=== PATIENT | male | born 1955 | race Caucasian/White ===

== ENCOUNTER → 2017-07-28 | Outpatient (REF) | payer MEDICARE ==
[2017-07-28 16:13] LABS: BASO # 0.1 10^3/uL (0.0-0.2); BASO % 0.8 % (0.0-1.0); EOS # 0.3 10^3/uL (0.0-0.50); EOS % 2.4 % (0.0-3.0); HEMATOCRIT 41.6 % (42.0-52.0); HEMOGLOBIN 13.8 g/dl (13.5-17.5); IMMATURE GRANULOCYTE % 0.4 % (0-3.0); LYMPH # 3.1 10^3/uL (1.5-4.5); LYMPH % 26.5 % (24.0-44.0); MEAN CORPUSCULAR HEMOGLOBIN 31.2 pg (27.0-33.0); MEAN CORPUSCULAR HGB CONC 33.2 g/dl (32.0-36.5); MEAN CORPUSCULAR VOLUME 94.1 fl (80.0-96.0); MONO # 1.7 10^3/uL (0.0-0.8); MONO % 14.3 % (0.0-5.0); NEUTROPHILS # 6.5 10^3/uL (1.8-7.7); NEUTROPHILS % 55.6 % (36.0-66.0); PLATELET COUNT, AUTOMATED 240 10^3/uL (150-450); RED BLOOD COUNT 4.42 10^6/uL (4.30-6.10); RED CELL DISTRIBUTION WIDTH 13.1 % (11.5-14.5); WHITE BLOOD COUNT 11.7 10^3/uL (4.0-10.0)
[2017-07-28 16:21] LABS: PTH INTACT 29.7 PG/ML (18.5-88.0); TOTAL 25(OH) VITAMIN D 35.5 NG/ML (30.0-100.0)
[2017-07-28 16:38] LABS: ALBUMIN 4.3 GM/DL (3.2-5.2); ALBUMIN/GLOBULIN RATIO 1.16 (1.00-1.93); ALKALINE PHOSPHATASE 81 U/L (45-117); ALT/SGPT 114 U/L (12-78); ANION GAP 8 MEQ/L (8-16); AST/SGOT 123 U/L (7-37); BILIRUBIN,TOTAL 0.8 MG/DL (0.2-1.0); BLOOD UREA NITROGEN 11 MG/DL (7-18); CARBON DIOXIDE LEVEL 29 MEQ/L (21-32); CHLORIDE LEVEL 100 MEQ/L (98-107); CHOLESTEROL LEVEL 162 MG/DL (<200); CHOLESTEROL RISK RATIO 4.378 (<5); CREATININE FOR GFR 1.32 MG/DL (0.70-1.30); GLOMERULAR FILTRATION RATE 58.7 (>49); GLUCOSE, FASTING 104 MG/DL (70-100); HDL CHOLESTEROL 37 MG/DL (>40); LDL CHOLESTEROL 99.4 MG/DL (<100); NON-HDL-C 125 MG/DL; POTASSIUM SERUM 4.2 MEQ/L (3.5-5.1); SODIUM LEVEL 137 MEQ/L (136-145); TRIGLYCERIDES LEVEL 128 MG/DL (<150)
[2017-08-03 14:13] LABS: AMPHETAMINE SCREEN, URINE See Final Results ng/mL (Cutoff=1000); AMPHETAMINE, URINE GC/MS 4700 ng/mL (Cutoff=500); AMPHETAMINES , URINE Positive (.); AMPHETAMINES , URINE Positive (Cutoff=1000); BARBITURATES SCREEN, URINE Negative ng/mL (Cutoff=200); BENZODIAZEPINES, URINE SCREEN Negative ng/mL (Cutoff=200); CANNABINOID SCREEN, URINE See Final Results ng/mL (Cutoff=20); CANNABINOID, URINE Positive (Cutoff=20); CARBOXY THC (GC/MS) >300 ng/mL (Cutoff=10); COCAINE SCREEN, URINE Negative ng/mL (Cutoff=300); CODEINE CONFIRM >3000 ng/mL (Cutoff=100); CODEINE, URINE Positive (.); CREATININE, URINE 163.6 mg/dL (20.0-300.0); FENTANYL URINE SCREEN Negative pg/mL (Cutoff=2000); HYDROCODONE CONFIRM, URINE 313 ng/mL (Cutoff=100); HYDROCODONE, URINE Positive (.); HYDROMORPHONE CONFIRM, URINE 131 ng/mL (Cutoff=100); HYDROMORPHONE, URINE Positive (.); METHADONE, URINE SCREEN Negative ng/mL (Cutoff=300); METHAMPHETAMINE, URINE Negative (Cutoff=500); MORPHINE CONFIRM, URINE >3000 ng/mL (Cutoff=100); MORPHINE, URINE Positive (.); OPIATE SCREEN, URINE See Final Results ng/mL (Cutoff=300); OPIATES, URINE Positive ng/mL (Cutoff=300); OXYCODONE, SCREEN, URINE Negative ng/mL (Cutoff=100); PCP SCREEN, URINE Negative ng/mL (Cutoff=25); SPECIFIC GRAVITY, URINE 1.011 (.); TRAMADOL, URINE Positive (Cutoff=200); TRAMADOL, URINE (GC/MS) 12450 ng/mL (Cutoff=100); pH, URINE 5.7 (4.5-8.9)
== END ==
LOC: M SFHCPLAZ 12:33
DX: I10 Essential (primary) hypertension (principal); E78.5 Hyperlipidemia, unspecified; E55.9 Vitamin D deficiency, unspecified; M75.100 Unspecified rotator cuff tear or rupture of unspecified shoulder, not specified as traumatic; G89.28 Other chronic postprocedural pain; Z79.82 Long term (current) use of aspirin; Z79.899 Other long term (current) drug therapy
CPT/HCPCS: 83735

== ENCOUNTER → 2017-08-15 | Outpatient (CLI) | payer MEDICARE ==
[2017-08-15 09:30] LABS: ANION GAP 6 MEQ/L (8-16); BLOOD UREA NITROGEN 13 MG/DL (7-18); CALCIUM LEVEL 8.9 MG/DL (8.8-10.2); CARBON DIOXIDE LEVEL 28 MEQ/L (21-32); CHLORIDE LEVEL 106 MEQ/L (98-107); CREATININE FOR GFR 1.23 MG/DL (0.70-1.30); GLOMERULAR FILTRATION RATE > 60.0 (>49); GLUCOSE, FASTING 134 MG/DL (70-100); PHOSPHORUS LEVEL 2.4 MG/DL (2.5-4.9); POTASSIUM SERUM 4.8 MEQ/L (3.5-5.1); SODIUM LEVEL 140 MEQ/L (136-145)
[2017-08-15 09:40] LABS: MALB URINE SIEMENS 13.6 MG/L; MAU/CREAT RATIO 5.9 MCG/MG (0.0-30.0)
[2017-08-16 09:21] LABS: HEPATITIS B SURFACE ANTIGEN NEGATIVE (NEGATIVE)
[2017-08-16 09:33] LABS: HEPATITIS B CORE ANTIBODY IGM NEGATIVE (NEGATIVE)
[2017-08-16 09:35] LABS: HEPATITIS A ANTIBODY IGM NEGATIVE (NEGATIVE)
[2017-08-16 10:13] LABS: HEPATITIS C VIRUS ABY INDEX > 11.0 INDEX (<0.8)
== END ==
LOC: M LAB 08:42
DX: R74.8 Abnormal levels of other serum enzymes (principal); N18.2 Chronic kidney disease, stage 2 (mild)
CPT/HCPCS: 80069

== ENCOUNTER → 2017-08-28 | Outpatient (CLI) | payer MEDICARE ==
[2017-08-28 10:50] LABS: HEPATITIS B SURFACE ANTIBODY NEGATIVE (POSITIVE)
[2017-08-31 08:11] LABS: ALPHA 2-MACROGLOBULIN 701 mg/dL (110-276); ALT 118 IU/L (0-55); APOLIPOPROTEIN A-1 127 mg/dL (101-178); FIBROSIS SCORE 0.94 (0.00-0.21); GGT 168 IU/L (0-65); HAPTOGLOBIN 96 mg/dL (34-200); HEPATITIS A IgG TOTAL Positive (Negative); NECROINFLAM SCORE 0.82 (0.00-0.17); NECROINFLAMM GRADE A3-Severe activity (.); TOTAL BILIRUBIN 0.5 mg/dL (0.0-1.2)
[2017-09-01 00:09] LABS: HEPATITIS C VIRUS GENOTYPE 1a (.)
== END ==
LOC: M LAB 09:05
DX: B19.20 Unspecified viral hepatitis C without hepatic coma (principal)
CPT/HCPCS: 84460

== ENCOUNTER → 2017-09-22 | Outpatient (CLI) | payer MEDICARE | LOC: M RAD 08:16 | DX: B19.20 Unspecified viral hepatitis C without hepatic coma (principal) | CPT/HCPCS: 76705 ==

== ENCOUNTER 2017-10-04 07:41 | Emergency (ER) | payer MEDICARE ==
[2017-10-04] MEDS: NORCO, ANEXSIA 5/325MG TABLET (HYDROcodone/ACETAMINOPHEN) PO (08:53)
== END 2017-10-04 08:54 | disposition home or self-care (01) ==
LOC: M ED 07:41
DX: S46.011A Strain of muscle(s) and tendon(s) of the rotator cuff of right shoulder, initial encounter (principal); X58.XXXA Exposure to other specified factors, initial encounter; Y92.9 Unspecified place or not applicable; Y93.9 Activity, unspecified; Y99.9 Unspecified external cause status; I10 Essential (primary) hypertension; J45.909 Unspecified asthma, uncomplicated; K21.9 Gastro-esophageal reflux disease without esophagitis; M19.90 Unspecified osteoarthritis, unspecified site; Z79.82 Long term (current) use of aspirin; Z79.899 Other long term (current) drug therapy
CPT/HCPCS: 99283

== ENCOUNTER → 2017-11-01 | Outpatient (REF) | payer MEDICARE ==
[2017-11-01 13:09] LABS: BASO # 0.1 10^3/uL (0.0-0.2); BASO % 0.9 % (0.0-1.0); EOS # 0.2 10^3/uL (0.0-0.50); EOS % 2.2 % (0.0-3.0); HEMATOCRIT 44.1 % (42.0-52.0); IMMATURE GRANULOCYTE % 0.7 % (0-3.0); LYMPH # 1.9 10^3/uL (1.5-4.5); LYMPH % 21.6 % (24.0-44.0); MEAN CORPUSCULAR HEMOGLOBIN 32.7 pg (27.0-33.0); MEAN CORPUSCULAR VOLUME 96.1 fl (80.0-96.0); MONO # 0.8 10^3/uL (0.0-0.8); MONO % 8.5 % (0.0-5.0); NEUTROPHILS # 5.9 10^3/uL (1.8-7.7); NEUTROPHILS % 66.1 % (36.0-66.0); PLATELET COUNT, AUTOMATED 178 10^3/uL (150-450); RED BLOOD COUNT 4.59 10^6/uL (4.30-6.10); RED CELL DISTRIBUTION WIDTH 12.4 % (11.5-14.5); WHITE BLOOD COUNT 8.9 10^3/uL (4.0-10.0)
[2017-11-01 13:15] LABS: INR 1.11; PROTHROMBIN TIME 14.4 SECONDS (12.1-14.4)
[2017-11-01 13:54] LABS: HIV 1&2 SCREEN CENTAUR NEGATIVE (NEGATIVE)
[2017-11-03 10:40] LABS: ALPHA FETOPROTEIN TUMOR QUANT 5.2 NG/ML (<8.1)
[2017-11-06 10:32] LABS: HEPATITIS C QUANTITATION 1937790 IU/mL (.)
== END ==
LOC: M LABDRAW1 09:27
DX: B18.2 Chronic viral hepatitis C (principal); K74.60 Unspecified cirrhosis of liver
CPT/HCPCS: 87522

== ENCOUNTER 2017-11-03 07:46 | Emergency (ER) | payer MEDICARE ==
[2017-11-03] MEDS: PERCOCET 5MG/325MG TAB PO (08:27)
== END 2017-11-03 09:25 | disposition home or self-care (01) ==
LOC: M ED 07:46
DX: G89.29 Other chronic pain (principal); M25.511 Pain in right shoulder; I10 Essential (primary) hypertension; J44.9 Chronic obstructive pulmonary disease, unspecified; Z86.19 Personal history of other infectious and parasitic diseases; K74.60 Unspecified cirrhosis of liver; M19.90 Unspecified osteoarthritis, unspecified site; F41.9 Anxiety disorder, unspecified; Z98.1 Arthrodesis status; Z79.82 Long term (current) use of aspirin; Z79.899 Other long term (current) drug therapy
CPT/HCPCS: 71046

== ENCOUNTER 2017-11-16 08:09 | Emergency (ER) | payer MEDICARE | END 2017-11-16 09:35 | disposition home or self-care (01) | LOC: M ED 08:09 | DX: M25.511 Pain in right shoulder (principal); G89.29 Other chronic pain; M19.011 Primary osteoarthritis, right shoulder; I10 Essential (primary) hypertension; J44.9 Chronic obstructive pulmonary disease, unspecified; B19.10 Unspecified viral hepatitis B without hepatic coma; B19.20 Unspecified viral hepatitis C without hepatic coma; K74.60 Unspecified cirrhosis of liver; F41.9 Anxiety disorder, unspecified; Z79.899 Other long term (current) drug therapy; Z79.82 Long term (current) use of aspirin; Z79.51 Long term (current) use of inhaled steroids | CPT/HCPCS: 99283 ==

== ENCOUNTER → 2017-12-21 | Outpatient (REF) | payer MEDICARE ==
[2017-12-21 14:32] LABS: BASO # 0.1 10^3/uL (0.0-0.2); BASO % 0.4 % (0.0-1.0); EOS # 0.1 10^3/uL (0.0-0.50); EOS % 0.6 % (0.0-3.0); HEMATOCRIT 48.3 % (42.0-52.0); IMMATURE GRANULOCYTE % 0.8 % (0-3.0); LYMPH # 2.5 10^3/uL (1.5-4.5); LYMPH % 11.9 % (24.0-44.0); MEAN CORPUSCULAR HEMOGLOBIN 32.6 pg (27.0-33.0); MEAN CORPUSCULAR HGB CONC 33.1 g/dl (32.0-36.5); MEAN CORPUSCULAR VOLUME 98.4 fl (80.0-96.0); MONO # 1.2 10^3/uL (0.0-0.8); NEUTROPHILS # 16.5 10^3/uL (1.8-7.7); NEUTROPHILS % 80.3 % (36.0-66.0); PLATELET COUNT, AUTOMATED 220 10^3/uL (150-450); RED BLOOD COUNT 4.91 10^6/uL (4.30-6.10); RED CELL DISTRIBUTION WIDTH 13.2 % (11.5-14.5); WHITE BLOOD COUNT 20.6 10^3/uL (4.0-10.0)
[2017-12-21 14:49] LABS: ALBUMIN 4.2 GM/DL (3.2-5.2); ALKALINE PHOSPHATASE 93 U/L (45-117); ALT/SGPT 23 U/L (12-78); AST/SGOT 22 U/L (7-37); BILIRUBIN,DIRECT 0.5 MG/DL (0.0-0.2); BILIRUBIN,TOTAL 1.2 MG/DL (0.2-1.0); TOTAL PROTEIN 8.4 GM/DL (6.4-8.2)
[2017-12-25 14:17] LABS: HEPATITIS C QUANTITATION HCV Not Detected IU/mL (.)
== END ==
LOC: M SFHCPLAZ 07:54
DX: B18.2 Chronic viral hepatitis C (principal)
CPT/HCPCS: 80076

== ENCOUNTER → 2018-01-02 | Outpatient (CLI) | payer MEDICARE | LOC: M PAIN 15:30 | DX: G89.29 Other chronic pain (principal); M54.5 Low back pain; M25.511 Pain in right shoulder; J45.909 Unspecified asthma, uncomplicated; I10 Essential (primary) hypertension; M50.20 Other cervical disc displacement, unspecified cervical region; K74.60 Unspecified cirrhosis of liver; Z87.891 Personal history of nicotine dependence; Z79.82 Long term (current) use of aspirin; Z79.899 Other long term (current) drug therapy | CPT/HCPCS: G0463 ==

== ENCOUNTER → 2018-01-30 | Outpatient (CLI) | payer MEDICARE | LOC: M PAIN 08:45 | DX: Z53.8 Procedure and treatment not carried out for other reasons (principal) ==

== ENCOUNTER 2018-02-17 07:33 | Emergency (ER) | payer MEDICARE ==
[2018-02-17] MEDS: PERCOCET 5MG/325MG TAB PO (08:18)
[2018-02-17] MEDS: OXYCODONE/APAP 5MG/325MG(BULK FOR ED) 1 TABLET PO (08:40)
== END 2018-02-17 08:45 | disposition home or self-care (01) ==
LOC: M ED 07:33
DX: M25.512 Pain in left shoulder (principal); G89.29 Other chronic pain; I10 Essential (primary) hypertension; J44.9 Chronic obstructive pulmonary disease, unspecified
CPT/HCPCS: 99283

== ENCOUNTER 2018-03-18 07:20 | Emergency (ER) | payer MEDICARE, OTHER ==
[~2018-03-18] VITALS: Ht 175.3 cm; Wt 75.0 kg
[~2018-03-18 07:20] MED LIST: ACET300T52 PO; ASPI1TAB21 PO; BABY81CH; BREO1INH PO; DIOV160T6 PO; GEMF600T PO; MAVY1TAB PO; MELOPOW; METO1TAB32 PO; METO1TAB87 PO; METO25TA2; METROPROLOL; MONT10TA2 PO; MULTIVIT PO; NEUR300C PO; NORCOTAB PO; PERC5TAB12 PO; PRED1TABL PO; PRIL20CA; PROAAER10 IN; PX O20TA PO; TIZA2TA PO; TRAZ-160 PO; TYLENOL #3; TYLETAB15 PO; TYLETAB3; VALS1TAB47 PO; VALS80CA; VENTAER; VOLT1GEL15 TOP; ZOCO20TA
[2018-03-18] MEDS ORDERED: PROAAER10 INH (07:27)
[2018-03-18] MEDS ORDERED: PERCOCET 5MG/325MG TAB PO ONE (08:30)
[2018-03-18 09:25] VITALS: BP 183/91
[2018-03-18] MEDS ORDERED: PERC5TAB12 PO (09:25)
--- NOTE | 2018-03-18 16:16 | REP ---
CT BRAIN WITHOUT IV CONTRAST: CT brain performed without IV contrast. There is very mild atrophy. There is no midline shift or mass effect. Mathis/white differentiation is well maintained. There is no acute intracranial hemorrhage or extra-axial fluid collection. No skull fracture is seen. There are mild vascular calcifications in the carotid siphons. IMPRESSION: No acute intracranial hemorrhage or skull fracture. Electronically Signed by David Mathis MD 03/18/2018 04:21 P
--- NOTE | 2018-03-18 16:22 | REP ---
CT CERVICAL SPINE: CT cervical spine performed in the axial plane with sagittal and coronal reconstruction images. There is no acute fracture or dislocation. There is evidence of prior anterior cervical discectomy and fusion at C5 through C7. There is spurring of C3 and C4 with mild disc space narrowing at C3-4 and C4-5. There is slight retrolisthesis of C4 on C5. There is an anterior osteophyte at the inferior aspect of C7. Two metallic screws at the C7 level extend beyond the posterior margin of the vertebral body into the spinal canal, approximately 5 mm. They appear to cause cortical compression at this level. There is no prevertebral soft tissue swelling. There is mild diffuse degenerative change at the posterior facet joints. Diffuse disc bulging is noted at C2-3, C3-4 and C4-5. IMPRESSION: No evidence of acute fracture or dislocation. There is evidence of prior anterior cervical discectomy and fusion C5 through C7. At the C7 level there are two metallic screws extending posteriorly through the inferior aspect of the C7 vertebral body. The tips of both screws extend into the spinal canal for a length of about 5 mm. There appears to be compression of the cord. I do not any prior studies for comparison but this does not appear to be an acute finding. Electronically Signed by David Mathis MD 03/18/2018 04:29 P
== END 2018-03-18 09:42 | disposition home or self-care (01) ==
LOC: M ED 07:20
DX: M54.2 Cervicalgia (principal); T84.226A Displacement of internal fixation device of vertebrae, initial encounter; X58.XXXA Exposure to other specified factors, initial encounter; Y92.89 Other specified places as the place of occurrence of the external cause; I10 Essential (primary) hypertension; J44.9 Chronic obstructive pulmonary disease, unspecified; J45.909 Unspecified asthma, uncomplicated; F41.9 Anxiety disorder, unspecified; M19.90 Unspecified osteoarthritis, unspecified site; K21.9 Gastro-esophageal reflux disease without esophagitis; K76.89 Other specified diseases of liver; B19.20 Unspecified viral hepatitis C without hepatic coma; B19.10 Unspecified viral hepatitis B without hepatic coma; Z79.899 Other long term (current) drug therapy; Z79.82 Long term (current) use of aspirin; Z87.891 Personal history of nicotine dependence

== ENCOUNTER 2018-05-19 10:02 | Emergency (ER) | payer MEDICARE ==
[~2018-05-19 10:02] MED LIST changes: +PROAAER10 INH
[2018-05-19] MEDS ORDERED: IRBE150T12 PO (10:25)
[2018-05-19] MEDS ORDERED: NS 1,000 ML IV ONE (11:15)
[2018-05-19] MEDS ORDERED: ceFAZolin SOD 1 GM in D5W MINI-BAG PLUS 50 ML IV ONE (11:30)
[2018-05-19] MEDS ORDERED: PERCOCET 5MG/325MG TAB PO ONE (11:45)
[2018-05-19 12:00] LABS: BASO # 0.1 10^3/uL (0.0-0.2); BASO % 0.8 % (0.0-1.0); EOS # 0.3 10^3/uL (0.0-0.50); EOS % 2.2 % (0.0-3.0); HEMATOCRIT 39.1 % (42.0-52.0); HEMOGLOBIN 13.2 g/dl (13.5-17.5); LYMPH # 2.4 10^3/uL (1.5-4.5); LYMPH % 17.2 % (24.0-44.0); MEAN CORPUSCULAR HEMOGLOBIN 30.9 pg (27.0-33.0); MEAN CORPUSCULAR HGB CONC 33.8 g/dl (32.0-36.5); MEAN CORPUSCULAR VOLUME 91.6 fl (80.0-96.0); MONO # 1.1 10^3/uL (0.0-0.8); NEUTROPHILS # 9.9 10^3/uL (1.8-7.7); NEUTROPHILS % 71.2 % (36.0-66.0); PLATELET COUNT, AUTOMATED 212 10^3/uL (150-450); RED BLOOD COUNT 4.27 10^6/uL (4.30-6.10); WHITE BLOOD COUNT 13.9 10^3/uL (4.0-10.0)
[2018-05-19 12:15] VITALS: BP 126/79
[2018-05-19 12:23] LABS: CALCIUM LEVEL 8.7 MG/DL (8.8-10.2); CREATININE FOR GFR 1.3 MG/DL (0.70-1.30); GLOMERULAR FILTRATION RATE 59.5 (>49); POTASSIUM SERUM 3.7 MEQ/L (3.5-5.1)
== END 2018-05-19 12:25 | disposition short-term general hospital (02) ==
LOC: EDBD 10:02 → M ED 10:02
DX: T81.31XA Disruption of external operation (surgical) wound, not elsewhere classified, initial encounter (principal); X58.XXXA Exposure to other specified factors, initial encounter; Y92.89 Other specified places as the place of occurrence of the external cause; I10 Essential (primary) hypertension; J44.9 Chronic obstructive pulmonary disease, unspecified; K21.9 Gastro-esophageal reflux disease without esophagitis; M19.90 Unspecified osteoarthritis, unspecified site; Z79.899 Other long term (current) drug therapy; Z79.82 Long term (current) use of aspirin; Z79.51 Long term (current) use of inhaled steroids
CPT/HCPCS: 80048; 85025; 87040; 96374; 99285; J0690

== ENCOUNTER → 2018-06-04 | Outpatient (REF) | payer MEDICARE ==
[~2018-06-04] MED LIST changes: +IRBE150T12 PO
[2018-06-04 11:26] LABS: BASO # 0.1 10^3/uL (0.0-0.2); BASO % 0.9 % (0.0-1.0); EOS # 0.5 10^3/uL (0.0-0.50); EOS % 3.7 % (0.0-3.0); HEMATOCRIT 38.4 % (42.0-52.0); HEMOGLOBIN 12.5 g/dl (13.5-17.5); LYMPH # 2.1 10^3/uL (1.5-4.5); LYMPH % 14.7 % (24.0-44.0); MEAN CORPUSCULAR HEMOGLOBIN 30.5 pg (27.0-33.0); MEAN CORPUSCULAR HGB CONC 32.6 g/dl (32.0-36.5); MEAN CORPUSCULAR VOLUME 93.7 fl (80.0-96.0); MONO # 1.2 10^3/uL (0.0-0.8); MONO % 8.3 % (0.0-5.0); NEUTROPHILS # 10.2 10^3/uL (1.8-7.7); NEUTROPHILS % 71.8 % (36.0-66.0); PLATELET COUNT, AUTOMATED 367 10^3/uL (150-450); WHITE BLOOD COUNT 14.2 10^3/uL (4.0-10.0)
[2018-06-04 11:36] LABS: ALBUMIN 3.9 GM/DL (3.2-5.2); BILIRUBIN,TOTAL 0.4 MG/DL (0.2-1.0); C REACTIVE PROTEIN QUANTITATIV 1.08 MG/DL (0.00-0.30); CALCIUM LEVEL 8.9 MG/DL (8.8-10.2); CREATININE FOR GFR 2.39 MG/DL (0.70-1.30); GLOMERULAR FILTRATION RATE 29.5 (>49); POTASSIUM SERUM 4.5 MEQ/L (3.5-5.1); TOTAL PROTEIN 7.6 GM/DL (6.4-8.2)
[2018-06-04 12:24] LABS: ERYTHROCYTE SEDIMENTATION RATE 49 mm/hr (0-20)
== END ==
LOC: M LAB REF 10:54
PROVIDERS: ATTEND Internal Medicine Infectious Disease
DX: T84.7XXD Infection and inflammatory reaction due to other internal orthopedic prosthetic devices, implants and grafts, subsequent encounter (principal)

== ENCOUNTER → 2018-06-11 | Outpatient (REF) | payer MEDICARE ==
[2018-06-11 14:40] LABS: BASO # 0.1 10^3/uL (0.0-0.2); BASO % 0.6 % (0.0-1.0); EOS # 0.2 10^3/uL (0.0-0.50); EOS % 1.5 % (0.0-3.0); HEMATOCRIT 39.3 % (42.0-52.0); HEMOGLOBIN 12.8 g/dl (13.5-17.5); LYMPH # 3.1 10^3/uL (1.5-4.5); LYMPH % 20.6 % (24.0-44.0); MEAN CORPUSCULAR HEMOGLOBIN 30.3 pg (27.0-33.0); MEAN CORPUSCULAR HGB CONC 32.6 g/dl (32.0-36.5); MEAN CORPUSCULAR VOLUME 93.1 fl (80.0-96.0); NEUTROPHILS # 10.3 10^3/uL (1.8-7.7); NEUTROPHILS % 69.8 % (36.0-66.0); PLATELET COUNT, AUTOMATED 457 10^3/uL (150-450); RED BLOOD COUNT 4.22 10^6/uL (4.30-6.10); WHITE BLOOD COUNT 14.8 10^3/uL (4.0-10.0)
[2018-06-11 14:53] LABS: ALBUMIN 3.7 GM/DL (3.2-5.2); BILIRUBIN,TOTAL 0.4 MG/DL (0.2-1.0); C REACTIVE PROTEIN QUANTITATIV 3.57 MG/DL (0.00-0.30); CALCIUM LEVEL 9.4 MG/DL (8.8-10.2); CREATININE FOR GFR 1.94 MG/DL (0.70-1.30); GLOMERULAR FILTRATION RATE 37.5 (>49); POTASSIUM SERUM 4.5 MEQ/L (3.5-5.1); TOTAL PROTEIN 7.9 GM/DL (6.4-8.2)
[2018-06-11 15:12] LABS: ERYTHROCYTE SEDIMENTATION RATE 60 mm/hr (0-20)
== END ==
LOC: M SHH 13:59
PROVIDERS: ATTEND Internal Medicine Infectious Disease
DX: T84.7XXD Infection and inflammatory reaction due to other internal orthopedic prosthetic devices, implants and grafts, subsequent encounter (principal); T81.49XA Infection following a procedure, other surgical site, initial encounter; A49.9 Bacterial infection, unspecified; Z79.2 Long term (current) use of antibiotics; X58.XXXA Exposure to other specified factors, initial encounter; Y92.89 Other specified places as the place of occurrence of the external cause

== ENCOUNTER → 2018-06-11 | Outpatient (REF) | payer MEDICARE ==
[2018-06-11 14:37] LABS: BASO # 0.1 10^3/uL (0.0-0.2); BASO % 0.8 % (0.0-1.0); EOS # 0.2 10^3/uL (0.0-0.50); EOS % 1.6 % (0.0-3.0); HEMOGLOBIN 12.7 g/dl (13.5-17.5); LYMPH # 3.1 10^3/uL (1.5-4.5); MEAN CORPUSCULAR HEMOGLOBIN 30.5 pg (27.0-33.0); MEAN CORPUSCULAR HGB CONC 33.4 g/dl (32.0-36.5); MEAN CORPUSCULAR VOLUME 91.3 fl (80.0-96.0); MONO % 7.1 % (0.0-5.0); NEUTROPHILS # 10.1 10^3/uL (1.8-7.7); PLATELET COUNT, AUTOMATED 457 10^3/uL (150-450); RED BLOOD COUNT 4.16 10^6/uL (4.30-6.10); WHITE BLOOD COUNT 14.6 10^3/uL (4.0-10.0)
[2018-06-11 14:58] LABS: ALBUMIN 3.7 GM/DL (3.2-5.2); BILIRUBIN,TOTAL 0.4 MG/DL (0.2-1.0); CALCIUM LEVEL 9.3 MG/DL (8.8-10.2); CHOLESTEROL RISK RATIO 4.953 (<5); CREATININE FOR GFR 1.91 MG/DL (0.70-1.30); GLOMERULAR FILTRATION RATE 38.2 (>49); MAGNESIUM LEVEL 1.8 MG/DL (1.8-2.4); POTASSIUM SERUM 4.5 MEQ/L (3.5-5.1); THYROID STIMULATING HORMONE 0.749 uIU/ML (0.358-3.740); TOTAL PROTEIN 7.8 GM/DL (6.4-8.2)
[2018-06-11 15:08] LABS: PTH INTACT 35.9 PG/ML (18.5-88.0); TOTAL 25(OH) VITAMIN D 23.6 NG/ML (30.0-100.0)
[2018-06-11 15:34] LABS: HEMOGLOBIN A1c 5.5 %
== END ==
LOC: M SHH 13:57
PROVIDERS: ATTEND Nurse Practitioner Family
DX: N18.3 Chronic kidney disease, stage 3 (moderate) (principal); E78.5 Hyperlipidemia, unspecified; I12.9 Hypertensive chronic kidney disease with stage 1 through stage 4 chronic kidney disease, or unspecified chronic kidney disease; E55.9 Vitamin D deficiency, unspecified; T84.7XXD Infection and inflammatory reaction due to other internal orthopedic prosthetic devices, implants and grafts, subsequent encounter; T81.49XA Infection following a procedure, other surgical site, initial encounter; A49.9 Bacterial infection, unspecified; Z79.1 Long term (current) use of non-steroidal anti-inflammatories (NSAID); X58.XXXA Exposure to other specified factors, initial encounter; Y92.89 Other specified places as the place of occurrence of the external cause

== ENCOUNTER → 2018-06-18 | Outpatient (REF) | payer MEDICARE ==
[2018-06-18 12:18] LABS: BASO # 0.1 10^3/uL (0.0-0.2); BASO % 1.1 % (0.0-1.0); EOS # 0.4 10^3/uL (0.0-0.50); EOS % 3.5 % (0.0-3.0); HEMATOCRIT 37.4 % (42.0-52.0); LYMPH # 2.1 10^3/uL (1.5-4.5); LYMPH % 20.7 % (24.0-44.0); MEAN CORPUSCULAR HEMOGLOBIN 30.5 pg (27.0-33.0); MEAN CORPUSCULAR HGB CONC 32.1 g/dl (32.0-36.5); MEAN CORPUSCULAR VOLUME 94.9 fl (80.0-96.0); MONO # 0.8 10^3/uL (0.0-0.8); MONO % 7.8 % (0.0-5.0); NEUTROPHILS # 6.8 10^3/uL (1.8-7.7); NEUTROPHILS % 66.2 % (36.0-66.0); PLATELET COUNT, AUTOMATED 364 10^3/uL (150-450); RED BLOOD COUNT 3.94 10^6/uL (4.30-6.10); WHITE BLOOD COUNT 10.3 10^3/uL (4.0-10.0)
[2018-06-18 13:11] LABS: ERYTHROCYTE SEDIMENTATION RATE 58 mm/hr (0-20)
[2018-06-18 13:31] LABS: ALBUMIN 3.7 GM/DL (3.2-5.2); BILIRUBIN,TOTAL 0.5 MG/DL (0.2-1.0); C REACTIVE PROTEIN QUANTITATIV 0.77 MG/DL (0.00-0.30); CALCIUM LEVEL 8.9 MG/DL (8.8-10.2); CREATININE FOR GFR 1.54 MG/DL (0.70-1.30); POTASSIUM SERUM 4.8 MEQ/L (3.5-5.1); TOTAL PROTEIN 7.5 GM/DL (6.4-8.2)
== END ==
LOC: M SHH 11:44
PROVIDERS: ATTEND Internal Medicine Infectious Disease
DX: T84.7XXD Infection and inflammatory reaction due to other internal orthopedic prosthetic devices, implants and grafts, subsequent encounter (principal); T81.49XA Infection following a procedure, other surgical site, initial encounter; A49.9 Bacterial infection, unspecified; Z79.2 Long term (current) use of antibiotics

== ENCOUNTER → 2018-06-25 | Outpatient (REF) | payer MEDICARE ==
[2018-06-25 13:33] LABS: HEMATOCRIT 37.8 % (42.0-52.0); HEMOGLOBIN 12.2 g/dl (13.5-17.5); MEAN CORPUSCULAR HEMOGLOBIN 29.8 pg (27.0-33.0); MEAN CORPUSCULAR HGB CONC 32.3 g/dl (32.0-36.5); MEAN CORPUSCULAR VOLUME 92.2 fl (80.0-96.0); PLATELET COUNT, AUTOMATED 311 10^3/uL (150-450); WHITE BLOOD COUNT 11.3 10^3/uL (4.0-10.0)
[2018-06-25 13:58] LABS: ALBUMIN 3.9 GM/DL (3.2-5.2); BILIRUBIN,TOTAL 0.5 MG/DL (0.2-1.0); C REACTIVE PROTEIN QUANTITATIV 1.28 MG/DL (0.00-0.30); CALCIUM LEVEL 9.1 MG/DL (8.8-10.2); CREATININE FOR GFR 1.63 MG/DL (0.70-1.30); GLOMERULAR FILTRATION RATE 45.9 (>49); POTASSIUM SERUM 4.7 MEQ/L (3.5-5.1); TOTAL PROTEIN 7.8 GM/DL (6.4-8.2)
[2018-06-25 15:12] LABS: ERYTHROCYTE SEDIMENTATION RATE 57 mm/hr (0-20)
== END ==
LOC: M SHH 13:07 → M LAB REF 13:07
PROVIDERS: ATTEND Physician Assistant
DX: Z45.2 Encounter for adjustment and management of vascular access device (principal); B95.7 Other staphylococcus as the cause of diseases classified elsewhere; B96.89 Other specified bacterial agents as the cause of diseases classified elsewhere; M96.1 Postlaminectomy syndrome, not elsewhere classified; I10 Essential (primary) hypertension

== ENCOUNTER → 2018-07-02 | Outpatient (REF) | payer MEDICARE ==
[2018-07-02 11:14] LABS: BASO # 0.1 10^3/uL (0.0-0.2); BASO % 0.8 % (0.0-1.0); EOS # 0.1 10^3/uL (0.0-0.50); EOS % 0.6 % (0.0-3.0); HEMATOCRIT 38.5 % (42.0-52.0); HEMOGLOBIN 12.9 g/dl (13.5-17.5); MEAN CORPUSCULAR HEMOGLOBIN 29.8 pg (27.0-33.0); MEAN CORPUSCULAR HGB CONC 33.5 g/dl (32.0-36.5); MEAN CORPUSCULAR VOLUME 88.9 fl (80.0-96.0); MONO # 0.8 10^3/uL (0.0-0.8); MONO % 6.1 % (0.0-5.0); NEUTROPHILS # 9.6 10^3/uL (1.8-7.7); NEUTROPHILS % 75.9 % (36.0-66.0); PLATELET COUNT, AUTOMATED 302 10^3/uL (150-450); RED BLOOD COUNT 4.33 10^6/uL (4.30-6.10); WHITE BLOOD COUNT 12.6 10^3/uL (4.0-10.0)
[2018-07-02 11:36] LABS: ERYTHROCYTE SEDIMENTATION RATE 49 mm/hr (0-20)
[2018-07-02 11:38] LABS: ALBUMIN 3.9 GM/DL (3.2-5.2); BILIRUBIN,TOTAL 0.4 MG/DL (0.2-1.0); C REACTIVE PROTEIN QUANTITATIV 0.46 MG/DL (0.00-0.30); CALCIUM LEVEL 11.6 MG/DL (8.8-10.2); CREATININE FOR GFR 1.34 MG/DL (0.70-1.30); GLOMERULAR FILTRATION RATE 57.5 (>49); POTASSIUM SERUM 4.3 MEQ/L (3.5-5.1); TOTAL PROTEIN 7.8 GM/DL (6.4-8.2)
== END ==
LOC: M SHH 11:04
PROVIDERS: ATTEND Specialist
DX: T84.7XXD Infection and inflammatory reaction due to other internal orthopedic prosthetic devices, implants and grafts, subsequent encounter (principal); Y83.8 Other surgical procedures as the cause of abnormal reaction of the patient, or of later complication, without mention of misadventure at the time of the procedure

== ENCOUNTER → 2018-07-09 | Outpatient (REF) | payer MEDICARE | LOC: M SHH 10:12 | PROVIDERS: ATTEND Internal Medicine Infectious Disease | DX: B18.2 Chronic viral hepatitis C (principal); K74.60 Unspecified cirrhosis of liver ==

== ENCOUNTER → 2018-07-09 | Outpatient (REF) | payer MEDICARE ==
[2018-07-09 10:55] LABS: BASO # 0.1 10^3/uL (0.0-0.2); BASO % 0.9 % (0.0-1.0); EOS # 0.3 10^3/uL (0.0-0.50); EOS % 2.2 % (0.0-3.0); HEMATOCRIT 41.1 % (42.0-52.0); HEMOGLOBIN 13.8 g/dl (13.5-17.5); LYMPH # 2.9 10^3/uL (1.5-4.5); LYMPH % 23.1 % (24.0-44.0); MEAN CORPUSCULAR HEMOGLOBIN 30.1 pg (27.0-33.0); MEAN CORPUSCULAR HGB CONC 33.6 g/dl (32.0-36.5); MEAN CORPUSCULAR VOLUME 89.7 fl (80.0-96.0); MONO % 8.3 % (0.0-5.0); NEUTROPHILS % 64.9 % (36.0-66.0); PLATELET COUNT, AUTOMATED 326 10^3/uL (150-450); RED BLOOD COUNT 4.58 10^6/uL (4.30-6.10); WHITE BLOOD COUNT 12.4 10^3/uL (4.0-10.0)
[2018-07-09 11:24] LABS: ALBUMIN 4.1 GM/DL (3.2-5.2); BILIRUBIN,TOTAL 0.5 MG/DL (0.2-1.0); C REACTIVE PROTEIN QUANTITATIV 0.37 MG/DL (0.00-0.30); CREATININE FOR GFR 1.44 MG/DL (0.70-1.30); GLOMERULAR FILTRATION RATE 52.9 (>49); POTASSIUM SERUM 4.3 MEQ/L (3.5-5.1); TOTAL PROTEIN 8.1 GM/DL (6.4-8.2)
[2018-07-09 12:12] LABS: ERYTHROCYTE SEDIMENTATION RATE 40 mm/hr (0-20)
== END ==
LOC: M SHH 10:10
PROVIDERS: ATTEND Nurse Practitioner Family
DX: Z51.81 Encounter for therapeutic drug level monitoring (principal); Z79.2 Long term (current) use of antibiotics; T84.7XXD Infection and inflammatory reaction due to other internal orthopedic prosthetic devices, implants and grafts, subsequent encounter; B18.2 Chronic viral hepatitis C; K74.60 Unspecified cirrhosis of liver

== ENCOUNTER → 2018-07-10 | Outpatient (REF) | payer MEDICARE ==
[~2018-07-10] MED LIST changes: +DOXY100T PO; +HYDR-3715 PO; -NORCOTAB PO; +RIFA300C3 PO; -VALS1TAB47 PO; +VALS1TAB67 PO
[2018-07-10 11:18] LABS: INR 1.07
[2018-07-12 14:14] LABS: HEPATITIS C QUANTITATION HCV Not Detected IU/mL (.)
== END ==
LOC: M SHH 10:55
PROVIDERS: ATTEND Internal Medicine Infectious Disease
DX: B18.2 Chronic viral hepatitis C (principal); K74.60 Unspecified cirrhosis of liver

== ENCOUNTER 2018-07-17 11:39 | Emergency (ER) | payer MEDICARE ==
[~2018-07-17] VITALS: Ht 175.3 cm; Wt 72.4 kg
[2018-07-17 11:39] VITALS: BP 171/88
[~2018-07-17 11:39] MED LIST changes: -DOXY100T PO; -RIFA300C3 PO
[2018-07-17] MEDS ORDERED: DOXY100T PO (11:57)
[2018-07-17] MEDS ORDERED: RIFA300C3 PO (11:57)
[2018-07-17 13:23] LABS: BASO # 0.1 10^3/uL (0.0-0.2); BASO % 0.8 % (0.0-1.0); EOS # 0.1 10^3/uL (0.0-0.50); HEMATOCRIT 44.4 % (42.0-52.0); LYMPH % 22.1 % (24.0-44.0); MEAN CORPUSCULAR HEMOGLOBIN 30.4 pg (27.0-33.0); MEAN CORPUSCULAR HGB CONC 33.8 g/dl (32.0-36.5); MEAN CORPUSCULAR VOLUME 89.9 fl (80.0-96.0); MONO # 1.1 10^3/uL (0.0-0.8); MONO % 8.2 % (0.0-5.0); NEUTROPHILS # 9.2 10^3/uL (1.8-7.7); NEUTROPHILS % 67.3 % (36.0-66.0); PLATELET COUNT, AUTOMATED 316 10^3/uL (150-450); RED BLOOD COUNT 4.94 10^6/uL (4.30-6.10); WHITE BLOOD COUNT 13.7 10^3/uL (4.0-10.0)
[2018-07-17 13:56] LABS: BILIRUBIN,TOTAL 0.5 MG/DL (0.2-1.0); CALCIUM LEVEL 9.8 MG/DL (8.8-10.2); CREATININE FOR GFR 1.45 MG/DL (0.70-1.30); GLOMERULAR FILTRATION RATE 52.5 (>49); POTASSIUM SERUM 4.2 MEQ/L (3.5-5.1)
[2018-07-17 13:57] LABS: ALBUMIN 3.8 GM/DL (3.2-5.2); BILIRUBIN,DIRECT 0.2 MG/DL (0.0-0.2); TOTAL PROTEIN 7.7 GM/DL (6.4-8.2)
== END 2018-07-17 14:00 | disposition left against medical advice (07) ==
LOC: M ED 11:39
DX: R11.2 Nausea with vomiting, unspecified (principal); Z53.21 Procedure and treatment not carried out due to patient leaving prior to being seen by health care provider

== ENCOUNTER → 2018-08-13 | Outpatient (REF) | payer MEDICARE ==
[~2018-08-13] MED LIST changes: +DOXY100T PO; +RIFA300C3 PO
[2018-08-13 13:47] LABS: ALBUMIN 3.6 GM/DL (3.2-5.2); ALT/SGPT 15 U/L (12-78); BASO # 0.1 10^3/uL (0.0-0.2); BASO % 1.1 % (0.0-1.0); BILIRUBIN,TOTAL 0.7 MG/DL (0.2-1.0); BLOOD UREA NITROGEN 17 MG/DL (7-18); C REACTIVE PROTEIN QUANTITATIV < 0.30 MG/DL (0.00-0.30); CALCIUM LEVEL 8.9 MG/DL (8.8-10.2); CARBON DIOXIDE LEVEL 26 MEQ/L (21-32); CHLORIDE LEVEL 105 MEQ/L (98-107); CPK CREATINE PHOSPHOKINASE 50 U/L (39-308); CREATININE FOR GFR 1.34 MG/DL (0.70-1.30); EOS # 0.2 10^3/uL (0.0-0.50); EOS % 1.6 % (0.0-3.0); GLOMERULAR FILTRATION RATE 57.5 (>49); GLUCOSE, FASTING 102 MG/DL (70-100); HEMATOCRIT 44.6 % (42.0-52.0); HEMOGLOBIN 15.1 g/dl (13.5-17.5); LYMPH # 2.6 10^3/uL (1.5-4.5); MEAN CORPUSCULAR HGB CONC 33.9 g/dl (32.0-36.5); MEAN CORPUSCULAR VOLUME 88.5 fl (80.0-96.0); MONO # 0.8 10^3/uL (0.0-0.8); MONO % 7.7 % (0.0-5.0); NEUTROPHILS # 6.6 10^3/uL (1.8-7.7); NEUTROPHILS % 64.2 % (36.0-66.0); PLATELET COUNT, AUTOMATED 275 10^3/uL (150-450); RED BLOOD COUNT 5.04 10^6/uL (4.30-6.10); SODIUM LEVEL 137 MEQ/L (136-145); TOTAL PROTEIN 7.1 GM/DL (6.4-8.2); WHITE BLOOD COUNT 10.3 10^3/uL (4.0-10.0)
[2018-08-13 14:48] LABS: ERYTHROCYTE SEDIMENTATION RATE 8 mm/hr (0-20)
== END ==
LOC: M SHH 12:45
PROVIDERS: ATTEND Internal Medicine Infectious Disease
DX: T84.7XXD Infection and inflammatory reaction due to other internal orthopedic prosthetic devices, implants and grafts, subsequent encounter (principal); A49.9 Bacterial infection, unspecified; Z79.2 Long term (current) use of antibiotics

== ENCOUNTER → 2018-10-10 | Outpatient (CLI) | payer MEDICARE ==
[~2018-10-10] MED LIST changes: -TRAZ-160 PO; +TRAZ-252 PO
--- NOTE | 2018-10-10 12:12 | REP ---
ULTRASOUND URINARY BLADDER: Real-time sonographic evaluation of urinary bladder performed. Bladder is moderately distended measuring 9.4 x 7.3 x 5.6 cm for a total volume of 251 mL. No mass or calculus is seen in the urinary bladder. There are bilateral ureteral jets with Doppler color evaluation. Postvoid residual is 27 mL, which is 11% of the original volume. Prostate measures 2.7 x 2.8 x 3.1 cm. Electronically Signed by David Mathis MD 10/10/2018 04:32 P
== END ==
LOC: M RAD 11:18
PROVIDERS: ATTEND Nurse Practitioner Family
DX: R35.0 Frequency of micturition (principal)

== ENCOUNTER → 2018-10-19 | Outpatient (CLI) | payer MEDICARE ==
[2018-10-19 07:12] LABS: APPEARANCE, URINE CLEAR (CLEAR); BACTERIA, URINE AUTO 1+ (NEGATIVE); BILIRUBIN, URINE AUTO NEGATIVE (NEGATIVE); BLOOD, URINE BLOOD NEGATIVE (NEGATIVE); COLOR, URINE YELLOW (YELLOW); GLUCOSE, URINE (UA) AUTO NEGATIVE (NEGATIVE); KETONE, URINE AUTO NEGATIVE (NEGATIVE); LEUKOCYTE ESTERASE, URINE AUTO NEGATIVE (NEGATIVE); NITRITE, URINE AUTO NEGATIVE (NEGATIVE); PROTEIN, URINE AUTO NEGATIVE (NEGATIVE); RBC, URINE AUTO 5 /HPF (0-3); SPECIFIC GRAVITY URINE AUTO 1.009 (1.002-1.035); SQUAMOUS EPITHELIAL CELL UR AU 0 /HPF (0-6); UROBILINOGEN, URINE AUTO 0.2 mg/dL (0.0-2.0); WBC, URINE AUTO 1 /HPF (0-3)
[2018-10-19 07:15] LABS: HEMATOCRIT 44.7 % (42.0-52.0); HEMOGLOBIN 15.2 g/dl (13.5-17.5); MEAN CORPUSCULAR HEMOGLOBIN 30.6 pg (27.0-33.0); MEAN CORPUSCULAR VOLUME 89.9 fl (80.0-96.0); PLATELET COUNT, AUTOMATED 203 10^3/uL (150-450); RED BLOOD COUNT 4.97 10^6/uL (4.30-6.10); WHITE BLOOD COUNT 9.8 10^3/uL (4.0-10.0)
[2018-10-19 07:29] LABS: HEMOGLOBIN A1c 5.6 %
[2018-10-19 07:52] LABS: ALBUMIN 3.7 GM/DL (3.2-5.2); BILIRUBIN,TOTAL 0.4 MG/DL (0.2-1.0); CALCIUM LEVEL 9.1 MG/DL (8.8-10.2); CHOLESTEROL RISK RATIO 4.018 (<5); CREATININE FOR GFR 1.41 MG/DL (0.70-1.30); GLOMERULAR FILTRATION RATE 54.2 (>49); THYROID STIMULATING HORMONE 1.16 uIU/ML (0.358-3.740); TOTAL PROTEIN 7.4 GM/DL (6.4-8.2)
[2018-10-19 09:28] LABS: TOTAL 25(OH) VITAMIN D 19.3 NG/ML (30.0-100.0)
== END ==
LOC: M LAB 06:42
PROVIDERS: ATTEND Nurse Practitioner Family
DX: I10 Essential (primary) hypertension (principal); E78.5 Hyperlipidemia, unspecified; R35.0 Frequency of micturition; E55.9 Vitamin D deficiency, unspecified

== ENCOUNTER → 2018-10-19 | Outpatient (CLI) | payer MEDICARE ==
--- NOTE | 2018-10-19 09:27 | REP ---
RIGHT UPPER QUADRANT ULTRASOUND: Real-time sonographic evaluation of the right upper quadrant performed. Gallbladder demonstrates no evidence of intraluminal sludge or calculi, wall thickening or pericholecystic fluid. There is no intrahepatic or extrahepatic biliary dilatation, common bile duct measuring 5 mm. Liver demonstrates heterogeneous coarsened echotexture compatible with diffuse fibrofatty infiltration. Scattered tiny calcifications are seen in the liver. There is no gross liver or pancreatic mass. The right kidney demonstrates no hydronephrosis with normal size 10.7 cm in length. There is no ascites. IMPRESSION: Diffuse fibrofatty infiltration of the liver with no gross mass. Electronically Signed by David Mathis MD 10/20/2018 10:39 A
== END ==
LOC: M RAD 06:57
PROVIDERS: ATTEND Internal Medicine Infectious Disease
DX: K76.0 Fatty (change of) liver, not elsewhere classified (principal); K74.60 Unspecified cirrhosis of liver; I10 Essential (primary) hypertension; E78.5 Hyperlipidemia, unspecified; R35.0 Frequency of micturition; E55.9 Vitamin D deficiency, unspecified

== ENCOUNTER 2018-11-01 09:04 | Emergency (ER) | payer MEDICARE ==
[~2018-11-01] VITALS: Ht 175.3 cm; Wt 72.0 kg
[2018-11-01] MEDS ORDERED: METOCLOPRAMIDE INJ 10MG/2ML VIAL (J2765) IV ONE (10:00)
[2018-11-01] MEDS ORDERED: KETOROLAC 30 MG/ML VIAL (J1885) IV ONE (10:00)
--- NOTE | 2018-11-01 10:13 | REP ---
CT BRAIN WITHOUT IV CONTRAST: CT brain performed without IV contrast. There is very mild atrophy. There is no midline shift or mass effect. Mathis white differentiation is well maintained. There is no acute intracranial hemorrhage or extra-axial fluid collection. There are mild vascular calcifications of the carotid siphons. The visualized paranasal sinuses are clear. IMPRESSION: No acute intracranial pathology. Electronically Signed by David Mathis MD 11/01/2018 12:44 P
[2018-11-01] MEDS ORDERED: PERCOCET 5MG/325MG TAB PO ONE (10:45)
[2018-11-01 11:37] VITALS: BP 153/72
== END 2018-11-01 11:38 | disposition home or self-care (01) ==
LOC: M ED 09:04
DX: R51 Headache (principal); I10 Essential (primary) hypertension; E78.5 Hyperlipidemia, unspecified; M54.5 Low back pain; M54.2 Cervicalgia; J45.909 Unspecified asthma, uncomplicated; B19.20 Unspecified viral hepatitis C without hepatic coma; Z87.891 Personal history of nicotine dependence; Z79.899 Other long term (current) drug therapy; Z98.1 Arthrodesis status; F19.11 Other psychoactive substance abuse, in remission
CPT/HCPCS: 70450; 96374; 96375; 99284; J1885; J2765

== ENCOUNTER → 2019-01-19 | Outpatient (CLI) | payer MEDICARE ==
[2019-01-19 10:59] LABS: BASO # 0.1 10^3/uL (0.0-0.2); EOS # 0.2 10^3/uL (0.0-0.5); EOS % 2.1 % (0.0-3.0); HEMOGLOBIN 15.8 g/dl (13.5-17.5); LYMPH # 2.4 10^3/uL (1.5-5.0); LYMPH % 24.9 % (24.0-44.0); MEAN CORPUSCULAR HGB CONC 33.6 g/dl (32.0-36.5); MEAN CORPUSCULAR VOLUME 92.2 fl (80.0-96.0); MONO # 0.9 10^3/uL (0.0-0.8); MONO % 9.4 % (0.0-5.0); NEUTROPHILS % 62.2 % (36.0-66.0); PLATELET COUNT, AUTOMATED 184 10^3/uL (150-450); WHITE BLOOD COUNT 9.6 10^3/uL (4.0-10.0)
[2019-01-19 11:23] LABS: HEMOGLOBIN A1c 5.5 %
[2019-01-19 11:31] LABS: ALBUMIN 4.3 GM/DL (3.2-5.2); BILIRUBIN,TOTAL 0.5 MG/DL (0.2-1.0); CALCIUM LEVEL 9.4 MG/DL (8.8-10.2); CHOLESTEROL RISK RATIO 6.093 (<5); CREATININE FOR GFR 1.61 MG/DL (0.70-1.30); FREE T4 0.97 NG/DL (0.76-1.46); GLOMERULAR FILTRATION RATE 46.4 (>49); POTASSIUM SERUM 4.4 MEQ/L (3.5-5.1); THYROID STIMULATING HORMONE 1.27 uIU/ML (0.358-3.740); TOTAL PROTEIN 7.7 GM/DL (6.4-8.2)
[2019-01-23 14:07] LABS: HEPATITIS C QUANTITATION HCV Not Detected IU/mL (.)
== END ==
LOC: M LAB 10:19
PROVIDERS: ATTEND Nurse Practitioner Family
DX: E78.5 Hyperlipidemia, unspecified (principal); R35.0 Frequency of micturition; B18.2 Chronic viral hepatitis C; K74.60 Unspecified cirrhosis of liver; Z79.899 Other long term (current) drug therapy
CPT/HCPCS: 36415; 80053; 80061; 82105; 83036; 84439; 84443; 85025; 87522; G0103

== ENCOUNTER → 2019-05-15 | Outpatient (REF) | payer MEDICARE ==
[2019-05-15 14:08] LABS: APPEARANCE, URINE CLEAR (CLEAR); BACTERIA, URINE AUTO NEGATIVE (NEGATIVE); BILIRUBIN, URINE AUTO NEGATIVE (NEGATIVE); BLOOD, URINE BLOOD NEGATIVE (NEGATIVE); COLOR, URINE YELLOW (YELLOW); GLUCOSE, URINE (UA) AUTO NEGATIVE (NEGATIVE); KETONE, URINE AUTO NEGATIVE (NEGATIVE); LEUKOCYTE ESTERASE, URINE AUTO NEGATIVE (NEGATIVE); MUCUS, URINE SMALL (NEGATIVE); NITRITE, URINE AUTO NEGATIVE (NEGATIVE); PROTEIN, URINE AUTO NEGATIVE (NEGATIVE); RBC, URINE AUTO 2 /HPF (0-3); SPECIFIC GRAVITY URINE AUTO 1.012 (1.002-1.035); SQUAMOUS EPITHELIAL CELL UR AU 0 /HPF (0-6); UROBILINOGEN, URINE AUTO 0.2 mg/dL (0.0-2.0); WBC, URINE AUTO 0 /HPF (0-3)
== END ==
LOC: M SFHCPLAZ 11:44
PROVIDERS: ATTEND Nurse Practitioner Family
DX: N39.0 Urinary tract infection, site not specified (principal)

== ENCOUNTER 2019-05-23 09:05 | Emergency (ER) | payer MEDICARE ==
[~2019-05-23] VITALS: Ht 175.3 cm; Wt 74.6 kg
[~2019-05-23 09:05] MED LIST changes: -ASPI1TAB21 PO; +ASPI325T58 PO; -IRBE150T12 PO; +IRBE150T7 PO; -MONT10TA2 PO; +MONT10TA4 PO
[2019-05-23] MEDS ORDERED: OXYC-141 (09:28)
[2019-05-23] MEDS ORDERED: OXYC10TA12 (09:28)
[2019-05-23] MEDS ORDERED: OMEP-218 (09:28)
--- NOTE | 2019-05-23 09:38 | REP ---
Clinical: Chest pain . Comparison: 11/03/2017 . Findings: The mediastinum and cardiac silhouette are stable and within normal limits for portable technique. The lung garcia are clear without acute consolidation, effusion, or pneumothorax. Skeletal structures are intact. Impression: No acute cardiopulmonary process appreciated. Electronically Signed by Delio Loja MD 05/23/2019 09:30 A
[2019-05-23 09:48] LABS: BASO # 0.1 10^3/uL (0.0-0.2); BASO % 0.8 % (0.0-1.0); EOS # 0.2 10^3/uL (0.0-0.5); EOS % 1.7 % (0.0-3.0); HEMATOCRIT 41.2 % (42.0-52.0); LYMPH # 2.4 10^3/uL (1.5-5.0); LYMPH % 23.4 % (24.0-44.0); MEAN CORPUSCULAR HEMOGLOBIN 30.8 pg (27.0-33.0); MEAN CORPUSCULAR VOLUME 90.5 fl (80.0-96.0); MONO # 0.9 10^3/uL (0.0-0.8); MONO % 9.1 % (0.0-5.0); NEUTROPHILS # 6.6 10^3/uL (1.5-8.5); NEUTROPHILS % 64.7 % (36.0-66.0); PLATELET COUNT, AUTOMATED 200 10^3/uL (150-450); RED BLOOD COUNT 4.55 10^6/uL (4.30-6.10); WHITE BLOOD COUNT 10.1 10^3/uL (4.0-10.0)
[2019-05-23 10:16] LABS: BLOOD UREA NITROGEN 10 MG/DL (7-18); CALCIUM LEVEL 9.3 MG/DL (8.8-10.2); CARBON DIOXIDE LEVEL 29 MEQ/L (21-32); CHLORIDE LEVEL 106 MEQ/L (98-107); CK-MB VALUE MASS 1.3 NG/ML (<3.6); CPK CREATINE PHOSPHOKINASE 167 U/L (39-308); CREATININE FOR GFR 1.31 MG/DL (0.70-1.30); GLOMERULAR FILTRATION RATE 58.8 (>49); GLUCOSE, FASTING 101 MG/DL (70-100); MB/CK RELATIVE INDEX 0.78 (< OR =4); POTASSIUM SERUM 3.9 MEQ/L (3.5-5.1); SODIUM LEVEL 141 MEQ/L (136-145); TROPONIN I < 0.02 NG/ML (< 0.10)
[2019-05-23] MEDS ORDERED: ISOVUE-370 76% 100ML VIAL (Q9967) As Ordered ONE (10:33)
--- NOTE | 2019-05-23 11:00 | REP ---
Clinical: Left sided pleuritic chest pain . Technique: Axial contrast enhanced images from the thoracic inlet to the upper abdomen using 75 ml Isovue 370 intravenous contrast material with multiplanar re-formations. Findings: Satisfactory enhancement of the pulmonary vasculature is achieved and no filling defects are identified to suggest pulmonary embolus. Further evaluation of the mediastinum demonstrates normal thoracic aorta, heart and pericardium. The bilateral lung garcia are well aerated and clear without consolidation pleural effusion or pneumothorax. Tracheobronchial tree is patent. No nodule or mass lesion is identified. No adenopathy noted. Surrounding musculoskeletal structures intact Impression: No evidence for pulmonary embolus. No acute mediastinal or pleural parenchymal process. Electronically Signed by Delio Loja MD 05/23/2019 10:53 A
[2019-05-23] MEDS ORDERED: oxyCODONE 5MG TAB PO ONE (12:00)
[2019-05-23] MEDS ORDERED: oxyCODONE 10 MG CR TAB PO ONE (12:00)
[2019-05-23 14:04] LABS: CPK CREATINE PHOSPHOKINASE 143 U/L (39-308); TROPONIN I < 0.02 NG/ML (< 0.10)
[2019-05-23] MEDS ORDERED: KETO10TAB PO (14:16)
[2019-05-23 15:01] VITALS: BP 150/71
--- NOTE | 2019-05-24 04:51 | ECGEPIP ---
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
--- NOTE | 2019-05-24 04:57 | ECGEPIP ---
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
== END 2019-05-23 15:14 | disposition home or self-care (01) ==
LOC: M ED 09:05
DX: R09.1 Pleurisy (principal); I45.19 Other right bundle-branch block; I10 Essential (primary) hypertension; J44.9 Chronic obstructive pulmonary disease, unspecified; E78.5 Hyperlipidemia, unspecified; M54.5 Low back pain; K74.60 Unspecified cirrhosis of liver; B19.20 Unspecified viral hepatitis C without hepatic coma; Z82.49 Family history of ischemic heart disease and other diseases of the circulatory system; F19.11 Other psychoactive substance abuse, in remission; Z79.899 Other long term (current) drug therapy; F17.210 Nicotine dependence, cigarettes, uncomplicated
CPT/HCPCS: 36415; 71045; 71275; 80048; 82550; 82553; 84484; 85025; 93005; 93041; 94760; 99285; Q9967

== ENCOUNTER → 2019-05-24 | Outpatient (CLI) | payer MEDICARE ==
[~2019-05-24] MED LIST changes: +KETO10TAB PO; +OMEP-218; +OXYC-141; +OXYC10TA12
--- NOTE | 2019-05-24 16:52 | REP ---
Urinary tract sonogram: History: Chronic kidney disease stage III. Comparison: No comparison study. Findings: Scanning at the level of the urinary bladder shows no abnormality. Emptying ureteral jets are confirmed from color Doppler interrogation of the bladder lumen bilaterally. Prostate calculated volume 18.3 mL, dimensions 3.5 x 2.7 x 3.7 cm. Renal cortical echogenicity pattern is normal bilaterally and contours are smooth. There is no evidence of hydronephrosis, cyst, mass, or calculus in either kidney. The right kidney measures 9.9 x 3.8 x 3.8 cm. Left renal dimensions are 9.9 x 2.9 x 4.7 cm. Impression: Normal urinary tract sonography. Electronically Signed by Kodi Us MD 05/25/2019 09:55 A
== END ==
LOC: M RAD 14:59
PROVIDERS: ATTEND Nurse Practitioner Family
DX: N18.3 Chronic kidney disease, stage 3 (moderate) (principal)

== ENCOUNTER → 2019-11-28 | Outpatient (CLI) | payer MEDICARE, MEDICAID ==
[~2019-11-28] MED LIST changes: +AUGM875T28 PO; +MORP-69; +OMEP-404 PO; -PX O20TA PO; +TRAZ-189
[2019-11-28 11:16] LABS: BASO # 0.1 10^3/uL (0.0-0.2); BASO % 0.6 % (0.0-1.0); EOS # 0.1 10^3/uL (0.0-0.5); EOS % 1.3 % (0.0-3.0); HEMATOCRIT 42.5 % (42.0-52.0); HEMOGLOBIN 14.3 g/dl (13.5-17.5); LYMPH # 2.4 10^3/uL (1.5-5.0); LYMPH % 24.6 % (24.0-44.0); MEAN CORPUSCULAR HEMOGLOBIN 31.2 pg (27.0-33.0); MEAN CORPUSCULAR HGB CONC 33.6 g/dl (32.0-36.5); MEAN CORPUSCULAR VOLUME 92.6 fl (80.0-96.0); MONO # 0.7 10^3/uL (0.0-0.8); MONO % 7.5 % (0.0-5.0); NEUTROPHILS # 6.3 10^3/uL (1.5-8.5); NEUTROPHILS % 65.7 % (36.0-66.0); PLATELET COUNT, AUTOMATED 228 10^3/uL (150-450); RED BLOOD COUNT 4.59 10^6/uL (4.30-6.10); WHITE BLOOD COUNT 9.6 10^3/uL (4.0-10.0)
[2019-11-28 11:41] LABS: ALBUMIN 4.4 GM/DL (3.2-5.2); ALT/SGPT 21 U/L (12-78); BILIRUBIN,TOTAL 0.5 MG/DL (0.2-1.0); BLOOD UREA NITROGEN 12 MG/DL (7-18); C REACTIVE PROTEIN QUANTITATIV < 0.30 MG/DL (0.00-0.30); CALCIUM LEVEL 9.6 MG/DL (8.8-10.2); CARBON DIOXIDE LEVEL 30 MEQ/L (21-32); CHLORIDE LEVEL 106 MEQ/L (98-107); CREATININE FOR GFR 1.36 MG/DL (0.70-1.30); GLOMERULAR FILTRATION RATE 56.2 (>49); GLUCOSE, FASTING 107 MG/DL (70-100); POTASSIUM SERUM 4.5 MEQ/L (3.5-5.1); SODIUM LEVEL 139 MEQ/L (136-145); TOTAL PROTEIN 7.9 GM/DL (6.4-8.2)
[2019-11-28 11:48] LABS: ERYTHROCYTE SEDIMENTATION RATE 7 mm/hr (0-20)
== END ==
LOC: M LAB 09:38
PROVIDERS: ATTEND Internal Medicine Infectious Disease
DX: M86.68 Other chronic osteomyelitis, other site (principal)

== ENCOUNTER → 2020-01-01 | Outpatient (CLI) | payer SELFPAY | LOC: M LABSMTC 14:17 | PROVIDERS: ATTEND Pediatrics | DX: Z20.828 Contact with and (suspected) exposure to other viral communicable diseases (principal) ==

== ENCOUNTER → 2020-01-15 | Outpatient (CLI) | payer MEDICARE ==
--- NOTE | 2020-01-20 14:07 | REP ---
MRI RIGHT SHOULDER HISTORY: Pain, multiple injuries over the past 10 years, and rotator cuff repair three years ago. TECHNIQUE: Multiple sequences obtained in the axial, coronal oblique, and sagittal oblique planes. FINDINGS: There is a full-thickness tear of the supraspinatus tendon directly superior to the humeral head. There is a gap in the tendon approximately 1.7 cm in length. Other rotator cuff tendons are intact. There are signal changes in the superolateral humeral head, which are linear and demonstrate metallic artifact compatible with prior rotator cuff repair. There are mild hypertrophic degenerative changes of the acromioclavicular joint with mild subchondral marrow edema. The acromion is type 1. The biceps tendon is within the bicipital groove with no tenosynovitis. There is no Hill-Sachs deferred. The deltoid muscle demonstrates no abnormal signal. The biceps labral complex is grossly intact. There does appear to be a tear of the labrum in the region of the anterior inferior corner. No other abnormal bone marrow signal is seen. There is no joint effusion. IMPRESSION: Full-thickness tear supraspinatus tendon directly superior to the humeral head as discussed above. No other rotator cuff tear. Mild hypertrophic degenerative changes of the acromioclavicular joint. I suspect a tear of the anterior inferior labrum. MTDD
== END ==
LOC: M RAD 17:51
PROVIDERS: ATTEND Orthopaedic Surgery
DX: M75.41 Impingement syndrome of right shoulder (principal); M75.42 Impingement syndrome of left shoulder

== ENCOUNTER 2020-01-16 11:27 | Emergency (ER) | payer MEDICARE ==
[~2020-01-16] VITALS: Ht 175.3 cm; Wt 76.0 kg
[~2020-01-16 11:27] MED LIST changes: -AUGM875T28 PO; -MORP-69; -TRAZ-189
[2020-01-16] MEDS ORDERED: TRAZ-189 (11:35)
[2020-01-16] MEDS ORDERED: MORP-69 (11:35)
[2020-01-16] MEDS ORDERED: BOOSTRIX/ADACEL VACCINE (DIPHTH/PERTUSS/ACELL/TETANUS) 0.5ML SYR IM ONE (12:15)
[2020-01-16] MEDS ORDERED: AUGMENTIN 875 MG TAB PO ONE (12:15)
[2020-01-16] MEDS ORDERED: AUGM875T28 PO (12:22)
[2020-01-16 12:35] VITALS: BP 127/67
== END 2020-01-16 12:37 | disposition home or self-care (01) ==
LOC: M ED 11:27
DX: S81.851A Open bite, right lower leg, initial encounter (principal); W54.0XXA Bitten by dog, initial encounter; Z79.51 Long term (current) use of inhaled steroids; Z79.891 Long term (current) use of opiate analgesic; Z79.899 Other long term (current) drug therapy; Y92.9 Unspecified place or not applicable; Y99.9 Unspecified external cause status; Y93.9 Activity, unspecified

== ENCOUNTER → 2020-02-17 | Outpatient (REF) | payer MEDICARE ==
[~2020-02-17] MED LIST changes: +AUGM875T28 PO; +MORP-69; +TRAZ-189
[2020-02-17 16:29] LABS: BASO # 0.1 10^3/uL (0.0-0.2); BASO % 0.6 % (0.0-1.0); EOS # 0.1 10^3/uL (0.0-0.5); EOS % 0.4 % (0.0-3.0); HEMATOCRIT 43.7 % (42.0-52.0); HEMOGLOBIN 14.8 g/dl (13.5-17.5); LYMPH % 13.6 % (24.0-44.0); MEAN CORPUSCULAR HEMOGLOBIN 31.2 pg (27.0-33.0); MEAN CORPUSCULAR HGB CONC 33.9 g/dl (32.0-36.5); MEAN CORPUSCULAR VOLUME 92.2 fl (80.0-96.0); MONO # 0.9 10^3/uL (0.0-0.8); MONO % 5.8 % (0.0-5.0); NEUTROPHILS # 11.5 10^3/uL (1.5-8.5); PLATELET COUNT, AUTOMATED 224 10^3/uL (150-450); RED BLOOD COUNT 4.74 10^6/uL (4.30-6.10); WHITE BLOOD COUNT 14.6 10^3/uL (4.0-10.0)
[2020-02-17 16:36] LABS: INR 0.99; PROTHROMBIN TIME 13.3 SECONDS (12.5-14.3)
[2020-02-17 16:37] LABS: PARTIAL THROMBOPLASTIN TIME 32.1 SECONDS (24.2-38.5)
[2020-02-17 16:47] LABS: ALBUMIN 4.6 GM/DL (3.2-5.2); ALT/SGPT 30 U/L (12-78); BILIRUBIN,TOTAL 0.5 MG/DL (0.2-1.0); BLOOD UREA NITROGEN 10 MG/DL (7-18); CALCIUM LEVEL 9.7 MG/DL (8.8-10.2); CARBON DIOXIDE LEVEL 29 MEQ/L (21-32); CHLORIDE LEVEL 102 MEQ/L (98-107); CHOLESTEROL LEVEL 227 MG/DL (<200); CHOLESTEROL RISK RATIO 5.279 (<5); CREATININE FOR GFR 1.19 MG/DL (0.70-1.30); GLOMERULAR FILTRATION RATE > 60.0 (>49); GLUCOSE, FASTING 104 MG/DL (70-100); HDL CHOLESTEROL 43 MG/DL (>40); LDL CHOLESTEROL 118 MG/DL (<100); NON-HDL-C 184 MG/DL; NT-PRO BNP 272 PG/ML (<125); SODIUM LEVEL 139 MEQ/L (136-145); TOTAL PROTEIN 8.3 GM/DL (6.4-8.2); TRIGLYCERIDES LEVEL 329 MG/DL (<150)
[2020-02-17 18:33] LABS: HEMOGLOBIN A1c 5.3 %
== END ==
LOC: M SFHCPLAZ 13:04
PROVIDERS: ATTEND Family Medicine
DX: I10 Essential (primary) hypertension (principal); R73.01 Impaired fasting glucose; K74.60 Unspecified cirrhosis of liver

== ENCOUNTER → 2020-02-17 | Outpatient (CLI) | payer MEDICARE ==
--- NOTE | 2020-02-17 14:59 | REPPI ---
INDICATION: J44.9 STAGE 2 MODERATE COPD BY GOLD CLASSIFICATION. COMPARISON: 05/23/2019 CT and AP chest TECHNIQUE: PA lateral FINDINGS: Lungs are less well inflated than on the previous chest causing crowding of markings. No definite effusion, lateral pleural thickening or acute infiltrate. Mild diffuse coarsening of interstitial markings noted. Heart size not enlarged for this degree of inflation. The aorta is mildly tortuous but unchanged. The airway intact. Hilar contours symmetric. Bony spine, ribs, clavicles and scapulae show minor degenerative changes without destructive lesion or visible fracture. No free air under the diaphragm. Incidental note made of anterior and posterior cervical fusion with hardware unchanged. IMPRESSION: 1. Lungs hypoinflated compared to previous study with some mild chronic interstitial changes which are exaggerated by lower level of inflation. No gross cardiomegaly, edema, effusion or dense consolidation. No parenchymal mass or pleural thickening. <Electronically signed by Oz Echeverria > 02/17/20 [id number]
== END ==
LOC: M PLAIMG 13:05
PROVIDERS: ATTEND Family Medicine
DX: J44.9 Chronic obstructive pulmonary disease, unspecified (principal); I10 Essential (primary) hypertension; R73.01 Impaired fasting glucose; K74.60 Unspecified cirrhosis of liver
CPT/HCPCS: 36415; 71046; 80053; 80061; 83036; 83880; 85025; 85610; 85730; 93005; G0463

== ENCOUNTER → 2020-06-10 | Outpatient (REF) | payer MEDICARE ==
[~2020-06-10] MED LIST changes: +MONT10TA10 PO; -MONT10TA4 PO
[2020-06-10 13:44] LABS: APPEARANCE, URINE CLEAR (CLEAR); BACTERIA, URINE AUTO NEGATIVE (NEGATIVE); BILIRUBIN, URINE AUTO NEGATIVE (NEGATIVE); BLOOD, URINE BLOOD NEGATIVE (NEGATIVE); COLOR, URINE YELLOW (YELLOW); GLUCOSE, URINE (UA) AUTO NEGATIVE (NEGATIVE); KETONE, URINE AUTO NEGATIVE (NEGATIVE); LEUKOCYTE ESTERASE, URINE AUTO NEGATIVE (NEGATIVE); MUCUS, URINE SMALL (NEGATIVE); NITRITE, URINE AUTO NEGATIVE (NEGATIVE); PROTEIN, URINE AUTO NEGATIVE (NEGATIVE); RBC, URINE AUTO 1 /HPF (0-3); SPECIFIC GRAVITY URINE AUTO 1.014 (1.002-1.035); SQUAMOUS EPITHELIAL CELL UR AU 0 /HPF (0-6); UROBILINOGEN, URINE AUTO 0.2 mg/dL (0.0-2.0); WBC, URINE AUTO 1 /HPF (0-3)
[2020-06-10 14:04] LABS: BASO # 0.1 10^3/uL (0.0-0.2); BASO % 0.8 % (0.0-1.0); EOS # 0.2 10^3/uL (0.0-0.5); EOS % 1.6 % (0.0-3.0); HEMATOCRIT 44.4 % (42.0-52.0); HEMOGLOBIN 14.4 g/dl (13.5-17.5); LYMPH # 2.6 10^3/uL (1.5-5.0); LYMPH % 20.3 % (24.0-44.0); MEAN CORPUSCULAR HEMOGLOBIN 30.1 pg (27.0-33.0); MEAN CORPUSCULAR HGB CONC 32.4 g/dl (32.0-36.5); MEAN CORPUSCULAR VOLUME 92.9 fl (80.0-96.0); MONO % 7.7 % (2.0-8.0); NEUTROPHILS # 8.7 10^3/uL (1.5-8.5); PLATELET COUNT, AUTOMATED 215 10^3/uL (150-450); RED BLOOD COUNT 4.78 10^6/uL (4.30-6.10); WHITE BLOOD COUNT 12.6 10^3/uL (4.0-10.0)
[2020-06-10 14:36] LABS: ALBUMIN 4.5 GM/DL (3.2-5.2); ALT/SGPT 26 U/L (12-78); BILIRUBIN,TOTAL 0.4 MG/DL (0.2-1.0); BLOOD UREA NITROGEN 12 MG/DL (7-18); CALCIUM LEVEL 9.1 MG/DL (8.8-10.2); CARBON DIOXIDE LEVEL 31 MEQ/L (21-32); CHLORIDE LEVEL 106 MEQ/L (98-107); CHOLESTEROL LEVEL 239 MG/DL (<200); CHOLESTEROL RISK RATIO 5.975 (<5); CREATININE FOR GFR 1.26 MG/DL (0.70-1.30); GLOMERULAR FILTRATION RATE > 60.0 (>49); GLUCOSE, FASTING 109 MG/DL (70-100); HDL CHOLESTEROL 40 MG/DL (>40); LDL CHOLESTEROL 143 MG/DL (<100); NON-HDL-C 199 MG/DL; NT-PRO BNP 248 PG/ML (<125); POTASSIUM SERUM 4.2 MEQ/L (3.5-5.1); SODIUM LEVEL 140 MEQ/L (136-145); THYROID STIMULATING HORMONE 0.895 uIU/ML (0.358-3.740); TOTAL PROTEIN 7.8 GM/DL (6.4-8.2); TRIGLYCERIDES LEVEL 279 MG/DL (<150)
[2020-06-10 15:39] LABS: HEMOGLOBIN A1c 5.5 %
== END ==
LOC: M SFHCPLAZ 10:06
PROVIDERS: ATTEND Nurse Practitioner Family
DX: E78.5 Hyperlipidemia, unspecified (principal); I10 Essential (primary) hypertension; R73.01 Impaired fasting glucose; N39.0 Urinary tract infection, site not specified

== ENCOUNTER 2020-07-10 17:27 | Emergency (ER) | payer MEDICARE ==
[~2020-07-10] VITALS: Ht 175.3 cm; Wt 79.9 kg
[2020-07-10 17:29] VITALS: BP 156/74
[2020-07-10] MEDS ORDERED: PERCOCET 5MG/325MG TAB PO ONE (19:05)
[2020-07-10] MEDS ORDERED: TAMSULOSIN 0.4 MG CAP PO ONE (19:10)
[2020-07-10] MEDS ORDERED: oxyCODONE 5MG TAB PO ONE (19:10)
[2020-07-10 19:18] LABS: BASO # 0.1 10^3/uL (0.0-0.2); BASO % 0.7 % (0.0-1.0); EOS # 0.3 10^3/uL (0.0-0.5); EOS % 2.2 % (0.0-3.0); HEMATOCRIT 42.2 % (42.0-52.0); HEMOGLOBIN 14.4 g/dl (13.5-17.5); LYMPH # 3.8 10^3/uL (1.5-5.0); LYMPH % 25.3 % (24.0-44.0); MEAN CORPUSCULAR HEMOGLOBIN 31.2 pg (27.0-33.0); MEAN CORPUSCULAR HGB CONC 34.1 g/dl (32.0-36.5); MEAN CORPUSCULAR VOLUME 91.5 fl (80.0-96.0); MONO # 1.2 10^3/uL (0.0-0.8); MONO % 7.8 % (2.0-8.0); NEUTROPHILS # 9.5 10^3/uL (1.5-8.5); NEUTROPHILS % 63.4 % (36.0-66.0); PLATELET COUNT, AUTOMATED 225 10^3/uL (150-450); RED BLOOD COUNT 4.61 10^6/uL (4.30-6.10); WHITE BLOOD COUNT 14.9 10^3/uL (4.0-10.0)
--- NOTE | 2020-07-10 20:42 | REPVR ---
PROCEDURE INFORMATION: Exam: US Scrotum Exam date and time: 07/10/2020 8:35 PM Age: 64 years old Clinical indication: Pain; Other: Penile; Additional info: Testicular pain, penile pain TECHNIQUE: Imaging protocol: Real-time ultrasound of the scrotum and contents with color Doppler and image documentation. COMPARISON: No relevant prior studies available. FINDINGS: Right testicle measures 4.3 x 2.1 x 2.8 cm in size. Right testicle appears homogeneous with no focal mass. Normal Doppler flow is present within the right testicle. Left testicle measures 3.9 x 1.9 x 2.6 cm in size. Left testicle appears homogeneous with no focal mass. Normal Doppler flow is present within the left testicle. Right and left epididymis are symmetric and have normal Doppler flow. Bilateral epididymal cysts, 7 mm left and 5 mm right, incidental. Physiologic fluid volume within the scrotal sac. Minor left varicocele. No bowel-containing hernia sac within the scrotum. IMPRESSION: Unremarkable scrotal ultrasound. Incidental epididymal cysts and minor left varicocele. Electronically signed by: Osmar Phelps On 07/10/2020 20:42:31 PM
--- NOTE | 2020-07-10 20:43 | REPVR ---
PROCEDURE INFORMATION: Exam: US Pelvis Limited, Transabdominal, Soft tissue Exam date and time: 07/10/2020 8:35 PM Age: 64 years old Clinical indication: Pelvic pain; Additional info: Pelvis pain left and right, R/O ing hernia bilat TECHNIQUE: Imaging protocol: Real-time transabdominal pelvic ultrasound with image documentation. Limited exam. Exam focused on the soft tissue. COMPARISON: BLADDER (LIMITED PELVIC) US 10/10/2018 11:18 AM FINDINGS: Bilateral inguinal regions visualized. No evidence of an inguinal hernia. No enlarged lymph nodes. No abnormal fluid or fluid collection. IMPRESSION: No evidence of inguinal hernia or other abnormality in the groin regions. Electronically signed by: Osmar Phelps On 07/10/2020 20:43:58 PM
[2020-07-10] MEDS ORDERED: LEVO500T3 PO (21:05)
[2020-07-10] MEDS ORDERED: FLOM0.4C39 PO (21:08)
[2020-07-10] MEDS ORDERED: LevoFLOXacin 500 MG TABLET PO ONE (21:35)
== END 2020-07-10 21:57 | disposition home or self-care (01) ==
LOC: M ED 17:27
DX: N41.0 Acute prostatitis (principal); R30.0 Dysuria; K46.9 Unspecified abdominal hernia without obstruction or gangrene; B16.1 Acute hepatitis B with delta-agent without hepatic coma; B18.2 Chronic viral hepatitis C; J44.9 Chronic obstructive pulmonary disease, unspecified

== ENCOUNTER → 2020-08-24 | Outpatient (REF) | payer MEDICARE ==
[~2020-08-24] MED LIST changes: +FLOM0.4C39 PO; +LEVO500T3 PO
== END ==
LOC: M PLALAB 09:49
PROVIDERS: ATTEND Urology
DX: N40.1 Benign prostatic hyperplasia with lower urinary tract symptoms (principal)
CPT/HCPCS: 36415; G0103

== ENCOUNTER 2020-10-04 02:35 | Emergency (ER) | payer MEDICARE ==
[~2020-10-04] VITALS: Ht 172.7 cm; Wt 77.2 kg
[2020-10-04 02:36] VITALS: BP 200/98
[2020-10-04] MEDS ORDERED: oxyCODONE 5MG TAB PO ONE (05:10)
[2020-10-04] MEDS ORDERED: CYCLOBENZAPRINE 10MG TABLET PO ONE (05:10)
[2020-10-04] MEDS ORDERED: LIDOCAINE 5% (LIDODERM) PATCH TD ONE (05:10)
[2020-10-04] MEDS ORDERED: CYCL-707 PO (05:12)
[2020-10-04] MEDS ORDERED: LIDO4CR TOP (05:12)
[2020-10-04] MEDS ORDERED: **NOTE PATIENT COMMENT** MISC XX SCH (21:00)
== END 2020-10-04 05:27 | disposition home or self-care (01) ==
LOC: M ED 02:35
DX: M54.2 Cervicalgia (principal); M62.830 Muscle spasm of back; Z79.51 Long term (current) use of inhaled steroids; Z79.899 Other long term (current) drug therapy

== ENCOUNTER → 2020-12-18 | Outpatient (CLI) | payer MEDICARE ==
[~2020-12-18] MED LIST changes: +CYCL-707 PO; +LIDO4CR TOP
[2020-12-18 13:18] LABS: HEMOGLOBIN A1c 5.4 %
[2020-12-18 13:32] LABS: ALBUMIN 4.3 GM/DL (3.2-5.2); ALT/SGPT 27 U/L (12-78); BILIRUBIN,TOTAL 0.6 MG/DL (0.2-1.0); BLOOD UREA NITROGEN 13 MG/DL (7-18); CALCIUM LEVEL 9.3 MG/DL (8.8-10.2); CARBON DIOXIDE LEVEL 30 MEQ/L (21-32); CHLORIDE LEVEL 102 MEQ/L (98-107); CHOLESTEROL LEVEL 215 MG/DL (<200); CREATININE FOR GFR 1.25 MG/DL (0.70-1.30); GLOMERULAR FILTRATION RATE > 60.0 (>49); GLUCOSE, FASTING 118 MG/DL (70-100); HDL CHOLESTEROL 37 MG/DL (>40); LDL CHOLESTEROL 133 MG/DL (<100); NON-HDL-C 178 MG/DL; POTASSIUM SERUM 4.1 MEQ/L (3.5-5.1); SODIUM LEVEL 138 MEQ/L (136-145); TOTAL PROTEIN 7.9 GM/DL (6.4-8.2); TRIGLYCERIDES LEVEL 227 MG/DL (<150)
== END ==
LOC: M LAB 11:51
PROVIDERS: ATTEND Nurse Practitioner Family
DX: E78.5 Hyperlipidemia, unspecified (principal); N18.30 Chronic kidney disease, stage 3 unspecified; R73.01 Impaired fasting glucose

== ENCOUNTER → 2021-05-20 | Outpatient (REF) | payer MEDICARE ==
[~2021-05-20] MED LIST changes: -LEVO500T3 PO; +LEVO500T4 PO; -MONT10TA10 PO; +MONT10TA97 PO; +OMEP-173; -OMEP-218; +TAMS1CAP17; +TRAM50TA2 PO
[2021-05-20 13:36] LABS: APPEARANCE, URINE CLEAR (CLEAR); BACTERIA, URINE AUTO NEGATIVE (NEGATIVE); BILIRUBIN, URINE AUTO NEGATIVE (NEGATIVE); BLOOD, URINE BLOOD NEGATIVE (NEGATIVE); COLOR, URINE YELLOW (YELLOW); GLUCOSE, URINE (UA) AUTO NEGATIVE (NEGATIVE); KETONE, URINE AUTO NEGATIVE (NEGATIVE); LEUKOCYTE ESTERASE, URINE AUTO NEGATIVE (NEGATIVE); MUCUS, URINE SMALL (NEGATIVE); NITRITE, URINE AUTO NEGATIVE (NEGATIVE); PROTEIN, URINE AUTO NEGATIVE (NEGATIVE); RBC, URINE AUTO 0 /HPF (0-3); SPECIFIC GRAVITY URINE AUTO 1.012 (1.002-1.035); SQUAMOUS EPITHELIAL CELL UR AU 0 /HPF (0-6); WBC, URINE AUTO 4 /HPF (0-3)
== END ==
LOC: M SMT 12:49
PROVIDERS: ATTEND Physician Assistant
DX: R30.0 Dysuria (principal)

== ENCOUNTER 2021-05-31 13:04 | Emergency (ER) | payer MEDICARE ==
[~2021-05-31] VITALS: Ht 175.3 cm; Wt 80.2 kg
[~2021-05-31 13:04] MED LIST changes: -TAMS1CAP17; -TRAM50TA2 PO
[2021-05-31 13:08] VITALS: BP 195/87
[2021-05-31] MEDS ORDERED: TAMS1CAP17 (13:26)
[2021-05-31] MEDS ORDERED: CYCLOBENZAPRINE 10MG TABLET PO ONE (16:10)
[2021-05-31] MEDS ORDERED: KETOROLAC 30 MG/ML 1ML VIAL IM ONE (16:10)
[2021-05-31] MEDS ORDERED: diazePAM 5MG TABLET PO ONE (18:05)
[2021-05-31] MEDS ORDERED: traMADol 50 MG TAB PO ONE (18:05)
[2021-05-31] MEDS ORDERED: TRAM50TA2 PO (19:03)
== END 2021-05-31 19:26 | disposition home or self-care (01) ==
LOC: M ED 13:59
DX: S46.911A Strain of unspecified muscle, fascia and tendon at shoulder and upper arm level, right arm, initial encounter (principal); W18.39XA Other fall on same level, initial encounter; Y92.018 Other place in single-family (private) house as the place of occurrence of the external cause; M54.2 Cervicalgia; I10 Essential (primary) hypertension; Z79.899 Other long term (current) drug therapy
CPT/HCPCS: 72125; 73030; 96372; 99282; J1885

== ENCOUNTER → 2021-08-23 | Outpatient (CLI) | payer MEDICARE ==
[~2021-08-23] MED LIST changes: -RIFA300C3 PO; +RIFA300C8 PO; +TAMS1CAP17; +TRAM50TA2 PO
[2021-08-23 08:05] LABS: BASO # 0.1 10^3/uL (0.0-0.2); BASO % 0.8 % (0.0-1.0); EOS # 0.4 10^3/uL (0.0-0.5); EOS % 3.7 % (0.0-3.0); HEMATOCRIT 45.2 % (42.0-52.0); HEMOGLOBIN 15.3 g/dl (13.5-17.5); LYMPH # 1.7 10^3/uL (1.5-5.0); LYMPH % 15.5 % (24.0-44.0); MEAN CORPUSCULAR HGB CONC 33.8 g/dl (32.0-36.5); MEAN CORPUSCULAR VOLUME 91.7 fl (80.0-96.0); MONO # 0.8 10^3/uL (0.0-0.8); MONO % 7.5 % (2.0-8.0); NEUTROPHILS # 8.1 10^3/uL (1.5-8.5); NEUTROPHILS % 72.1 % (36.0-66.0); PLATELET COUNT, AUTOMATED 234 10^3/uL (150-450); RED BLOOD COUNT 4.93 10^6/uL (4.30-6.10); WHITE BLOOD COUNT 11.2 10^3/uL (4.0-10.0)
[2021-08-23 08:21] LABS: HEMOGLOBIN A1c 5.5 %
[2021-08-23 08:36] LABS: MALB URINE SIEMENS 83.5 MG/L; MAU/CREAT RATIO 64.2 MCG/MG (0.0-30.0)
[2021-08-23 08:36] LABS: ALBUMIN 4.1 GM/DL (3.2-5.2); ALT/SGPT 22 U/L (12-78); BILIRUBIN,TOTAL 0.6 MG/DL (0.2-1.0); BLOOD UREA NITROGEN 9 MG/DL (7-18); CALCIUM LEVEL 9.9 MG/DL (8.8-10.2); CARBON DIOXIDE LEVEL 27 MEQ/L (21-32); CHLORIDE LEVEL 104 MEQ/L (98-107); CHOLESTEROL LEVEL 221 MG/DL (<200); CHOLESTEROL RISK RATIO 6.314 (<5); CREATININE FOR GFR 1.21 MG/DL (0.70-1.30); GLOMERULAR FILTRATION RATE > 60.0 (>49); GLUCOSE, FASTING 126 MG/DL (70-100); HDL CHOLESTEROL 35 MG/DL (>40); LDL CHOLESTEROL 131 MG/DL (<100); NON-HDL-C 186 MG/DL; POTASSIUM SERUM 3.9 MEQ/L (3.5-5.1); SODIUM LEVEL 137 MEQ/L (136-145); TOTAL PROTEIN 8.1 GM/DL (6.4-8.2); TRIGLYCERIDES LEVEL 273 MG/DL (<150)
[2021-08-23 10:23] LABS: TOTAL 25(OH) VITAMIN D 21.6 NG/ML (30.0-100.0)
== END ==
LOC: M LAB 07:36
PROVIDERS: ATTEND Nurse Practitioner Family
DX: E55.9 Vitamin D deficiency, unspecified (principal); N18.30 Chronic kidney disease, stage 3 unspecified; I12.9 Hypertensive chronic kidney disease with stage 1 through stage 4 chronic kidney disease, or unspecified chronic kidney disease; E78.5 Hyperlipidemia, unspecified; R73.01 Impaired fasting glucose; Z12.5 Encounter for screening for malignant neoplasm of prostate
CPT/HCPCS: 36415; 80053; 80061; 82043; 82306; 83036; 85025; G0103

== ENCOUNTER 2021-12-21 19:45 | Emergency (ER) | payer MEDICARE, OTHER ==
[~2021-12-21] VITALS: Ht 172.7 cm; Wt 76.4 kg
[2021-12-21 19:45] VITALS: BP 132/88
[~2021-12-21 19:45] MED LIST changes: +LEVO1TAB39 PO; -LEVO500T4 PO
== END 2021-12-21 22:39 | disposition left against medical advice (07) ==
LOC: M ED 19:45
DX: Z53.29 Procedure and treatment not carried out because of patient's decision for other reasons (principal)

== ENCOUNTER → 2021-12-24 | Outpatient (REF) | payer MEDICARE, OTHER | LOC: M LAB REF 14:54 | PROVIDERS: ATTEND Nurse Practitioner Family | DX: R05.9 Cough, unspecified (principal); Z53.8 Procedure and treatment not carried out for other reasons ==

== ENCOUNTER → 2021-12-26 | Outpatient (REF) | payer MEDICARE, OTHER | LOC: M SFHCPLAZ 15:00 | PROVIDERS: ATTEND Nurse Practitioner Family | DX: R19.7 Diarrhea, unspecified (principal); R05.9 Cough, unspecified ==

== ENCOUNTER → 2022-01-17 | Outpatient (CLI) | payer MEDICARE ==
[~2022-01-17] MED LIST changes: +E-Z-GAS II EFFERVESCENT PACKET (SODIUM BICARB./CITRIC ACID/SIMETHICONE) As Ordered ONE; +E-Z-HD 98% w/w 340GM SUSP BTL As Ordered ONE; +E-Z-PAQUE 96% w/w SUSP 176GM BTL As Ordered ONE
== END ==
LOC: M RAD 08:47
PROVIDERS: ATTEND Nurse Practitioner Family
DX: R13.10 Dysphagia, unspecified (principal)

== ENCOUNTER → 2022-04-06 | Outpatient (CLI) | payer MEDICARE ==
[~2022-04-06] MED LIST changes: -E-Z-GAS II EFFERVESCENT PACKET (SODIUM BICARB./CITRIC ACID/SIMETHICONE) As Ordered ONE; -E-Z-HD 98% w/w 340GM SUSP BTL As Ordered ONE; -E-Z-PAQUE 96% w/w SUSP 176GM BTL As Ordered ONE
== END ==
LOC: M LABSMTC 10:04
PROVIDERS: ATTEND Family Medicine
DX: Z20.822 Contact with and (suspected) exposure to COVID-19 (principal)

== ENCOUNTER 2023-01-09 04:00 | Emergency (ER) | payer MEDICARE, OTHER ==
[~2023-01-09] VITALS: Ht 175.3 cm; Wt 74.8 kg
[2023-01-09] MEDS ORDERED: MORPHINE 10 MG/ML 1ML VIAL IM ONE (06:25)
[2023-01-09] MEDS ORDERED: methocarbamoL 750 MG TAB PO ONE (08:45)
[2023-01-09] MEDS ORDERED: TRAM50TA2 PO (09:22)
[2023-01-09] MEDS ORDERED: METH-1165 PO (09:22)
[2023-01-09] MEDS ORDERED: ASPE4PAD TOP (09:22)
[2023-01-09 10:06] VITALS: BP 150/82; TEMP 96.4; O2SAT 98
== END 2023-01-09 10:10 | disposition home or self-care (01) ==
LOC: M ED 04:00
DX: M54.2 Cervicalgia (principal); M25.511 Pain in right shoulder; M25.512 Pain in left shoulder; I10 Essential (primary) hypertension; J45.909 Unspecified asthma, uncomplicated; J44.9 Chronic obstructive pulmonary disease, unspecified; K21.9 Gastro-esophageal reflux disease without esophagitis; Z86.19 Personal history of other infectious and parasitic diseases; M19.90 Unspecified osteoarthritis, unspecified site; K74.60 Unspecified cirrhosis of liver; F17.200 Nicotine dependence, unspecified, uncomplicated; Z79.899 Other long term (current) drug therapy

== ENCOUNTER → 2023-03-14 | Outpatient (REF) | payer OTHER ==
[~2023-03-14] MED LIST changes: +ASPE4PAD TOP; +METH-1165 PO
[2023-03-15 14:04] LABS: APPEARANCE, URINE CLEAR (CLEAR); BACTERIA, URINE AUTO NEGATIVE (NEGATIVE); BILIRUBIN, URINE AUTO NEGATIVE (NEGATIVE); BLOOD, URINE BLOOD NEGATIVE (NEGATIVE); COLOR, URINE YELLOW (YELLOW); GLUCOSE, URINE (UA) AUTO NEGATIVE (NEGATIVE); KETONE, URINE AUTO NEGATIVE (NEGATIVE); LEUKOCYTE ESTERASE, URINE AUTO NEGATIVE (NEGATIVE); MUCUS, URINE SMALL (NEGATIVE); NITRITE, URINE AUTO NEGATIVE (NEGATIVE); PROTEIN, URINE AUTO 1+ mg/dL (NEGATIVE); RBC, URINE AUTO 0 /HPF (0-3); SPECIFIC GRAVITY URINE AUTO 1.016 (1.002-1.035); SQUAMOUS EPITHELIAL CELL UR AU 0 /HPF (0-6); UROBILINOGEN, URINE AUTO 0.2 mg/dL (0.0-2.0); WBC, URINE AUTO 1 /HPF (0-3)
== END ==
LOC: M SMT 13:01
PROVIDERS: ATTEND Physician Assistant
DX: R30.0 Dysuria (principal)

== ENCOUNTER 2023-03-19 03:06 | Emergency (ER) | payer OTHER ==
[~2023-03-19] VITALS: Ht 175.3 cm; Wt 74.5 kg
[2023-03-19 03:08] VITALS: BP 135/83; TEMP 98; O2SAT 98
[2023-03-19] MEDS ORDERED: KETOROLAC 30 MG/ML 1ML VIAL IM ONE (03:35)
== END 2023-03-19 06:15 | disposition left against medical advice (07) ==
LOC: M ED 03:06
DX: Z53.21 Procedure and treatment not carried out due to patient leaving prior to being seen by health care provider (principal)
CPT/HCPCS: 99281; J1885

== ENCOUNTER 2023-03-25 16:09 | Emergency (ER) | payer OTHER ==
[~2023-03-25] VITALS: Ht 175.3 cm; Wt 75.9 kg
[2023-03-25] MEDS ORDERED: oxyCODONE 5MG TAB PO ONE (17:30)
[2023-03-25] MEDS ORDERED: OXYC-517 PO (19:18)
[2023-03-25] MEDS ORDERED: MIRA3350 PO (19:18)
[2023-03-25 19:23] VITALS: BP 180/94; TEMP 98.2; O2SAT 100
== END 2023-03-25 19:27 | disposition home or self-care (01) ==
LOC: M ED 16:09
DX: S46.911A Strain of unspecified muscle, fascia and tendon at shoulder and upper arm level, right arm, initial encounter (principal); X50.0XXA Overexertion from strenuous movement or load, initial encounter; Y92.9 Unspecified place or not applicable; Y93.89 Activity, other specified; Y99.0 Civilian activity done for income or pay; J44.9 Chronic obstructive pulmonary disease, unspecified; N40.0 Benign prostatic hyperplasia without lower urinary tract symptoms; Z96.611 Presence of right artificial shoulder joint; Z79.899 Other long term (current) drug therapy

== ENCOUNTER → 2023-05-09 | Outpatient (REF) | payer OTHER ==
[~2023-05-09] MED LIST changes: +IRBE150T27 PO; -IRBE150T7 PO; +MIRA3350 PO; +OXYC-517 PO
[2023-05-09 18:21] LABS: APPEARANCE, URINE CLEAR (CLEAR); BACTERIA, URINE AUTO NEGATIVE (NEGATIVE); BILIRUBIN, URINE AUTO NEGATIVE (NEGATIVE); BLOOD, URINE BLOOD NEGATIVE (NEGATIVE); COLOR, URINE YELLOW (YELLOW); GLUCOSE, URINE (UA) AUTO NEGATIVE (NEGATIVE); KETONE, URINE AUTO NEGATIVE (NEGATIVE); LEUKOCYTE ESTERASE, URINE AUTO NEGATIVE (NEGATIVE); NITRITE, URINE AUTO NEGATIVE (NEGATIVE); PROTEIN, URINE AUTO NEGATIVE (NEGATIVE); RBC, URINE AUTO 0 /HPF (0-3); SPECIFIC GRAVITY URINE AUTO 1.004 (1.002-1.035); SQUAMOUS EPITHELIAL CELL UR AU 0 /HPF (0-6); UROBILINOGEN, URINE AUTO 0.2 mg/dL (0.0-2.0); WBC, URINE AUTO 0 /HPF (0-3)
== END ==
LOC: M SMT 16:49
PROVIDERS: ATTEND Urology
DX: R30.0 Dysuria (principal)

== ENCOUNTER → 2023-05-22 | Outpatient (CLI) | payer OTHER ==
[~2023-05-22] MED LIST changes: +ALBU8.5H INH; -TAMS1CAP17; +TAMS1CAP17 PO; +THERTAB52 PO
[2023-05-22 10:37] LABS: HEMATOCRIT 43.5 % (42.0-52.0); HEMOGLOBIN 14.9 g/dl (13.5-17.5); MEAN CORPUSCULAR HEMOGLOBIN 30.9 pg (27.0-33.0); MEAN CORPUSCULAR HGB CONC 34.3 g/dl (32.0-36.5); MEAN CORPUSCULAR VOLUME 90.2 fl (80.0-96.0); PLATELET COUNT, AUTOMATED 224 10^3/uL (150-450); RED BLOOD COUNT 4.82 10^6/uL (4.30-6.10); WHITE BLOOD COUNT 10.7 10^3/uL (4.0-10.0)
[2023-05-22 10:48] LABS: APPEARANCE, URINE CLEAR (CLEAR); BACTERIA, URINE AUTO NEGATIVE (NEGATIVE); BILIRUBIN, URINE AUTO NEGATIVE (NEGATIVE); BLOOD, URINE BLOOD NEGATIVE (NEGATIVE); COLOR, URINE YELLOW (YELLOW); GLUCOSE, URINE (UA) AUTO NEGATIVE (NEGATIVE); KETONE, URINE AUTO NEGATIVE (NEGATIVE); LEUKOCYTE ESTERASE, URINE AUTO NEGATIVE (NEGATIVE); NITRITE, URINE AUTO NEGATIVE (NEGATIVE); PROTEIN, URINE AUTO NEGATIVE (NEGATIVE); RBC, URINE AUTO 0 /HPF (0-3); SPECIFIC GRAVITY URINE AUTO 1.009 (1.002-1.035); SQUAMOUS EPITHELIAL CELL UR AU 0 /HPF (0-6); WBC, URINE AUTO 0 /HPF (0-3)
[2023-05-22 11:05] LABS: ALBUMIN 3.9 G/DL (3.2-5.2); BILIRUBIN,TOTAL 0.7 MG/DL (0.3-1.2); CALCIUM LEVEL 8.8 MG/DL (8.3-10.6); CREATININE FOR GFR 1.31 MG/DL (0.70-1.30); GLOMERULAR FILTRATION RATE 58.1 (>49); POTASSIUM SERUM 3.5 MMOL/L (3.5-5.1); TOTAL PROTEIN 6.9 G/DL (5.7-8.2)
== END ==
LOC: M RAD 09:11
PROVIDERS: ATTEND Urology
DX: R30.0 Dysuria (principal)

== ENCOUNTER 2023-05-29 07:16 | Day surgery (SDC) | payer OTHER ==
[~2023-05-29] VITALS: Ht 175.3 cm; Wt 74.8 kg
[~2023-05-29 07:16] MED LIST changes: +BREO1INH INH; -BREO1INH PO; +ceFAZolin SOD 2 GM in IV 1 EA IV ONE
[2023-05-29] MEDS ORDERED: ISOVUE-300 61% 100ML VIAL As Ordered ONE (07:23)
[2023-05-29] MEDS ORDERED: LR 1,000 ML IV SCH ×2 (07:45→09:10)
[2023-05-29] MEDS ORDERED: propofoL 200 MG/20 ML VIAL As Ordered ONE (07:58)
[2023-05-29] MEDS ORDERED: ONDANSETRON 4MG 2ML VIAL As Ordered ONE (07:58)
[2023-05-29] MEDS ORDERED: LIDOCAINE 2% 100MG/5ML SDV (FOR ANES.) As Ordered ONE (07:58)
[2023-05-29] MEDS ORDERED: MIDAZOLAM INJ 2MG/2ML VIAL As Ordered ONE (08:01)
[2023-05-29] MEDS ORDERED: fentaNYL 100 MCG/2 ML INJECTION As Ordered ONE (08:01)
[2023-05-29] MEDS ORDERED: ACETAMINOPHEN 1000MG 100ML IV BAG As Ordered ONE (08:50)
[2023-05-29] MEDS ORDERED: ONDANSETRON 4MG 2ML VIAL IV PRN (09:10)
[2023-05-29] MEDS ORDERED: fentaNYL 100 MCG/2 ML INJECTION IV PRN (09:10)
[2023-05-29] MEDS ORDERED: HYDR-3713 PO (09:12)
[2023-05-29] MEDS ORDERED: MACR100C43 PO (09:12)
[2023-05-29] MEDS ORDERED: OXYB5TAB14 PO (09:12)
[2023-05-29] MEDS ORDERED: PYRI1TAB5 PO (09:12)
[2023-05-29] MEDS: oxyCODONE 5MG TAB PO PRN (09:32)
[2023-05-29] MEDS ORDERED: KETOROLAC 30 MG/ML 1ML VIAL As Ordered ONE (09:42)
[2023-05-29] MEDS: KETOROLAC 30 MG/ML 1ML VIAL IV ONE (09:44)
[2023-05-29 09:57] VITALS: TEMP 97.6
[2023-05-29 11:02] VITALS: BP 184/91; O2SAT 97
== END 2023-05-29 11:02 | disposition home or self-care (01) ==
LOC: M SDC 07:16
PROVIDERS: ATTEND Urology
DX: N35.912 Unspecified bulbous urethral stricture, male (principal); I10 Essential (primary) hypertension; N40.1 Benign prostatic hyperplasia with lower urinary tract symptoms; Z79.899 Other long term (current) drug therapy; Z79.51 Long term (current) use of inhaled steroids
CPT/HCPCS: 52276; A4215; C1769; J0131; J1100; J1885; J2250; J2405; J3010

== ENCOUNTER 2023-06-03 06:03 | Observation (INO) | payer OTHER ==
[~2023-06-03] VITALS: Ht 175.3 cm; Wt 75.7 kg
[~2023-06-03 06:03] MED LIST changes: +HYDR-3713 PO; +MACR100C43 PO; +OXYB5TAB14 PO; +PYRI1TAB5 PO; -ceFAZolin SOD 2 GM in IV 1 EA IV ONE
[2023-06-03] MEDS: ACETAMINOPHEN 500 MG TAB PO ONE (07:45)
[2023-06-03] MEDS: LIDOCAINE 5% (LIDODERM) PATCH TD ONE (08:10)
[2023-06-03] MEDS: KETOROLAC 30 MG/ML 1ML VIAL IV ONE (08:11)
[2023-06-03] MEDS: CYCLOBENZAPRINE 5MG TABLET PO ONE (08:11)
[2023-06-03 08:31] LABS: BASO # 0.1 10^3/uL (0.0-0.2); BASO % 0.7 % (0.0-1.0); EOS # 0.3 10^3/uL (0.0-0.5); EOS % 2.4 % (0.0-3.0); HEMATOCRIT 41.3 % (42.0-52.0); LYMPH # 1.5 10^3/uL (1.5-5.0); LYMPH % 11.8 % (24.0-44.0); MEAN CORPUSCULAR HEMOGLOBIN 31.4 pg (27.0-33.0); MEAN CORPUSCULAR HGB CONC 36.3 g/dl (32.0-36.5); MEAN CORPUSCULAR VOLUME 86.6 fl (80.0-96.0); MONO # 0.9 10^3/uL (0.0-0.8); MONO % 7.6 % (2.0-8.0); NEUTROPHILS # 9.6 10^3/uL (1.5-8.5); NEUTROPHILS % 77.1 % (36.0-66.0); PLATELET COUNT, AUTOMATED 253 10^3/uL (150-450); RED BLOOD COUNT 4.77 10^6/uL (4.30-6.10); WHITE BLOOD COUNT 12.4 10^3/uL (4.0-10.0)
[2023-06-03 08:51] LABS: ERYTHROCYTE SEDIMENTATION RATE 16 mm/hr (0-20)
[2023-06-03 08:54] LABS: BLOOD UREA NITROGEN 9 MG/DL (9-23); CALCIUM LEVEL 8.7 MG/DL (8.3-10.6); CARBON DIOXIDE LEVEL 32 MMOL/L (20-31); CHLORIDE LEVEL 103 MMOL/L (98-107); CREATININE FOR GFR 1.01 MG/DL (0.70-1.30); GLOMERULAR FILTRATION RATE > 60.0 (>49); GLUCOSE, FASTING 113 MG/DL (74-106); POTASSIUM SERUM 2.8 MMOL/L (3.5-5.1); SODIUM LEVEL 140 MMOL/L (136-145)
[2023-06-03 09:50] LABS: MAGNESIUM LEVEL 1.6 MG/DL (1.8-2.4)
[2023-06-03] MEDS: KCL 10MEQ/100ML SWI (KRUN) 10 MEQ in IV 1 EA IV ONE (09:55)
[2023-06-03] MEDS: METOPROLOL 5 MG/5 ML VIAL IV SCH (09:56)
[2023-06-03] MEDS: POTASSIUM CHLORIDE 10MEQ SR TABLET PO ONE ×3 (09:56→20:48)
[2023-06-03] MEDS: ONDANSETRON 4MG 2ML VIAL IV ONE (10:43)
[2023-06-03] MEDS: MORPHINE 4 MG/ML 1ML VIAL IV ONE (10:44)
[2023-06-03] MEDS: hydrALAZINE 20MG/ML 1ML VIAL IV STA (11:49)
[2023-06-03] MEDS ORDERED: PERCOCET 5MG/325MG TAB PO PRN (13:25)
[2023-06-03] MEDS ORDERED: hydrALAZINE 20MG/ML 1ML VIAL IV PRN (13:25)
[2023-06-03] MEDS ORDERED: NITR100C2 PO (13:27)
[2023-06-03] MEDS ORDERED: OXYB5TAB14 PO (13:27)
[2023-06-03] MEDS ORDERED: OMEP40CA5 PO (13:27)
[2023-06-03] MEDS ORDERED: HOME MED LIST COMPLETE! XX SCH (13:30)
[2023-06-03] MEDS: PERCOCET 5MG/325MG TAB PO ONE (13:31)
[2023-06-03] MEDS ORDERED: ALBUTEROL 90 MCG/ACT 8GM HFA INHALER INH PRN (13:40)
[2023-06-03] MEDS: oxyBUTYnin 5 MG TAB PO PRN (14:31)
[2023-06-03] MEDS: OMEPRAZOLE 20MG CAP PO SCH (14:31)
[2023-06-03] MEDS: NITROFURANTOIN (MACROBID) 100 MG CAP PO SCH (14:31)
[2023-06-03] MEDS: TAMSULOSIN 0.4 MG CAP PO SCH (14:31)
[2023-06-03] MEDS: MONTELUKAST 10 MG TAB PO SCH (14:32)
[2023-06-03] MEDS: MULTIVITAMINS/MINERALS THERAP 1 TAB PO SCH (14:32)
[2023-06-03] MEDS: MAG SULF 1GM/100ML (MAG RUN) 1 GM in IV 1 EA IV SCH (14:36)
[2023-06-03 15:06] VITALS: BP 178/88; TEMP 98; O2SAT 97
[2023-06-03 16:32] VITALS: BP 165/77; TEMP 97.8; O2SAT 98
[2023-06-03] MEDS: PERCOCET 5MG/325MG TAB PO PRN (18:56)
[2023-06-03 19:09] LABS: BLOOD UREA NITROGEN 10 MG/DL (9-23); CALCIUM LEVEL 8.7 MG/DL (8.3-10.6); CARBON DIOXIDE LEVEL 32 MMOL/L (20-31); CHLORIDE LEVEL 102 MMOL/L (98-107); CREATININE FOR GFR 0.98 MG/DL (0.70-1.30); GLOMERULAR FILTRATION RATE > 60.0 (>49); GLUCOSE, FASTING 132 MG/DL (74-106); MAGNESIUM LEVEL 2.7 MG/DL (1.8-2.4); POTASSIUM SERUM 3.2 MMOL/L (3.5-5.1); SODIUM LEVEL 139 MMOL/L (136-145)
[2023-06-03] MEDS: ADVAIR HFA 115/21MCG INHALER INH SCH (19:49)
[2023-06-03 20:00] VITALS: BP 154/82; TEMP 97.8; O2SAT 96
[2023-06-03] MEDS: HEPARIN SOD (PORCINE) 5000UNITS/ML 1ML VIAL/SYRINGE SQ SCH (23:32)
[2023-06-03 23:36] VITALS: BP 135/65; TEMP 97.7; O2SAT 98
[2023-06-04 00:12] VITALS: BP 146/66; TEMP 97.8; O2SAT 97
[2023-06-04 00:27] LABS: HEMATOCRIT 44.2 % (42.0-52.0); HEMOGLOBIN 15.5 g/dl (13.5-17.5)
[2023-06-04 03:50] VITALS: BP 161/73; TEMP 97.3; O2SAT 94
[2023-06-04 06:02] LABS: BASO # 0.1 10^3/uL (0.0-0.2); BASO % 0.6 % (0.0-1.0); EOS # 0.3 10^3/uL (0.0-0.5); EOS % 2.6 % (0.0-3.0); HEMATOCRIT 42.8 % (42.0-52.0); HEMOGLOBIN 14.9 g/dl (13.5-17.5); LYMPH # 0.9 10^3/uL (1.5-5.0); LYMPH % 9.1 % (24.0-44.0); MEAN CORPUSCULAR HEMOGLOBIN 30.6 pg (27.0-33.0); MEAN CORPUSCULAR HGB CONC 34.8 g/dl (32.0-36.5); MEAN CORPUSCULAR VOLUME 87.9 fl (80.0-96.0); MONO # 0.7 10^3/uL (0.0-0.8); MONO % 6.7 % (2.0-8.0); NEUTROPHILS % 80.5 % (36.0-66.0); PLATELET COUNT, AUTOMATED 227 10^3/uL (150-450); RED BLOOD COUNT 4.87 10^6/uL (4.30-6.10)
[2023-06-04 06:28] LABS: BLOOD UREA NITROGEN 9 MG/DL (9-23); CALCIUM LEVEL 8.6 MG/DL (8.3-10.6); CARBON DIOXIDE LEVEL 29 MMOL/L (20-31); CHLORIDE LEVEL 100 MMOL/L (98-107); CREATININE FOR GFR 0.98 MG/DL (0.70-1.30); GLOMERULAR FILTRATION RATE > 60.0 (>49); GLUCOSE, FASTING 127 MG/DL (74-106); POTASSIUM SERUM 3.3 MMOL/L (3.5-5.1); SODIUM LEVEL 137 MMOL/L (136-145)
[2023-06-04 07:50] VITALS: BP 166/77; TEMP 98.1; O2SAT 98
[2023-06-04] MEDS: POTASSIUM CHLORIDE 10MEQ SR TABLET PO ONE (08:22)
[2023-06-04 08:23] VITALS: BP 166/77
[2023-06-04] MEDS ORDERED: PERC5TAB12 PO (09:56)
[2023-06-04] MEDS ORDERED: POTA10TA67 PO (09:56)
[2023-06-04] MEDS ORDERED: AMLO1TAB25 PO (09:56)
[2023-06-04 10:45] VITALS: BP 138/70; TEMP 97.8; O2SAT 96
[2023-06-05] MEDS ORDERED: AMLO1TAB25 PO (21:19)
[2023-06-05] MEDS ORDERED: POTA-150 PO (21:26)
[2023-06-05] MEDS ORDERED: PERC5TAB12 PO (21:26)
== END 2023-06-04 12:08 | disposition home or self-care (01) ==
LOC: M ED 06:03 → M ED INP 06:04 → M PCU 15:02
PROVIDERS: ADMIT Internal Medicine; ATTEND Internal Medicine
DX: M25.511 Pain in right shoulder (principal); G89.29 Other chronic pain; Z98.890 Other specified postprocedural states; Z96.611 Presence of right artificial shoulder joint; I16.0 Hypertensive urgency; E87.6 Hypokalemia; E83.42 Hypomagnesemia; R31.9 Hematuria, unspecified; E78.5 Hyperlipidemia, unspecified; J44.9 Chronic obstructive pulmonary disease, unspecified; N18.30 Chronic kidney disease, stage 3 unspecified; I12.9 Hypertensive chronic kidney disease with stage 1 through stage 4 chronic kidney disease, or unspecified chronic kidney disease; D72.829 Elevated white blood cell count, unspecified; K74.60 Unspecified cirrhosis of liver; M54.9 Dorsalgia, unspecified; K21.9 Gastro-esophageal reflux disease without esophagitis; N40.0 Benign prostatic hyperplasia without lower urinary tract symptoms; R00.1 Bradycardia, unspecified; Z86.19 Personal history of other infectious and parasitic diseases; Z79.899 Other long term (current) drug therapy; Z79.51 Long term (current) use of inhaled steroids; Z87.891 Personal history of nicotine dependence
CPT/HCPCS: 36415; 72125; 72128; 72131; 73030; 80048; 83735; 85014; 85018; 85025; 85652; 86140; 87486; 87581; 87633; 87798; 93005; 94640; 96365; 96366; 96367; 96372; 96375; 99285; G0378; J0360; J1885; J2405; J3475

== ENCOUNTER 2023-06-05 12:01 | Observation (INO) | payer OTHER ==
[~2023-06-05] VITALS: Ht 175.3 cm; Wt 72.1 kg
[~2023-06-05 12:01] MED LIST changes: +AMLO1TAB25 PO; +NITR100C2 PO; +OMEP40CA5 PO; +POTA10TA67 PO
[2023-06-05 14:20] LABS: BASO # 0.1 10^3/uL (0.0-0.2); BASO % 0.6 % (0.0-1.0); EOS # 0.3 10^3/uL (0.0-0.5); EOS % 2.7 % (0.0-3.0); HEMATOCRIT 44.8 % (42.0-52.0); HEMOGLOBIN 15.3 g/dl (13.5-17.5); LYMPH # 1.7 10^3/uL (1.5-5.0); LYMPH % 17.2 % (24.0-44.0); MEAN CORPUSCULAR HEMOGLOBIN 31.2 pg (27.0-33.0); MEAN CORPUSCULAR HGB CONC 34.2 g/dl (32.0-36.5); MEAN CORPUSCULAR VOLUME 91.2 fl (80.0-96.0); MONO % 10.6 % (2.0-8.0); NEUTROPHILS # 6.6 10^3/uL (1.5-8.5); NEUTROPHILS % 68.5 % (36.0-66.0); PLATELET COUNT, AUTOMATED 253 10^3/uL (150-450); RED BLOOD COUNT 4.91 10^6/uL (4.30-6.10); WHITE BLOOD COUNT 9.6 10^3/uL (4.0-10.0)
[2023-06-05 14:36] LABS: INR 1.06; PARTIAL THROMBOPLASTIN TIME 28.5 SECONDS (24.8-34.2); PROTHROMBIN TIME 13.5 SECONDS (12.5-14.5)
[2023-06-05 14:45] LABS: CK-MB VALUE MASS 1.3 NG/ML (<3.6)
[2023-06-05 14:47] LABS: BILIRUBIN,DIRECT 0.2 MG/DL (<0.4); BILIRUBIN,TOTAL 0.4 MG/DL (0.3-1.2); CREATININE FOR GFR 1.42 MG/DL (0.70-1.30); GLOMERULAR FILTRATION RATE 52.9 (>49); MAGNESIUM LEVEL 1.9 MG/DL (1.8-2.4); POTASSIUM SERUM 3.6 MMOL/L (3.5-5.1); TOTAL PROTEIN 7.3 G/DL (5.7-8.2)
[2023-06-05 14:50] LABS: MB/CK RELATIVE INDEX 1.03 (< OR =4)
[2023-06-05 14:59] LABS: RSV AMPLIFICATION NEGATIVE (NEGATIVE)
[2023-06-05] MEDS: NS 1,000 ML IV ONE (17:03)
[2023-06-05] MEDS: ONDANSETRON 4MG 2ML VIAL IV ONE (17:04)
[2023-06-05] MEDS: MORPHINE 4 MG/ML 1ML VIAL IV ONE ×2 (17:04→20:17)
[2023-06-05] MEDS ORDERED: ISOVUE-370 76% 100ML VIAL As Ordered ONE (18:52)
[2023-06-05 18:58] LABS: CK-MB VALUE MASS < 1.0 NG/ML (<3.6)
[2023-06-05 18:59] LABS: CPK CREATINE PHOSPHOKINASE 101 U/L (46-171); MB/CK RELATIVE INDEX 0.99 (< OR =4)
[2023-06-05] MEDS: PANTOPRAZOLE 40MG VIAL IV ONE (20:16)
[2023-06-05] MEDS: DOCUSATE SODIUM 100MG CAPSULE PO SCH (21:00)
[2023-06-05] MEDS ORDERED: AMLO1TAB25 PO (21:19)
[2023-06-05] MEDS ORDERED: PERC5TAB12 PO (21:26)
[2023-06-05] MEDS ORDERED: POTA-150 PO (21:26)
[2023-06-05] MEDS ORDERED: HOME MED LIST COMPLETE! XX SCH (21:35)
[2023-06-05] MEDS ORDERED: ONDANSETRON 4MG 2ML VIAL IV PRN (21:45)
[2023-06-06 00:19] VITALS: BP 166/78; TEMP 98.2; O2SAT 98
[2023-06-06] MEDS: oxyCODONE 5MG TAB PO PRN (00:31)
[2023-06-06] MEDS: NS 1,000 ML IV SCH (00:33)
[2023-06-06 04:59] LABS: BLOOD UREA NITROGEN 10 MG/DL (9-23); CALCIUM LEVEL 8.4 MG/DL (8.3-10.6); CARBON DIOXIDE LEVEL 28 MMOL/L (20-31); CHLORIDE LEVEL 107 MMOL/L (98-107); CREATININE FOR GFR 1.14 MG/DL (0.70-1.30); GLOMERULAR FILTRATION RATE > 60.0 (>49); GLUCOSE, FASTING 104 MG/DL (74-106); POTASSIUM SERUM 3.5 MMOL/L (3.5-5.1); SODIUM LEVEL 141 MMOL/L (136-145)
[2023-06-06 05:51] VITALS: BP 160/84; TEMP 98.9; O2SAT 97
[2023-06-06 06:08] VITALS: BP 160/84
[2023-06-06] MEDS: hydrALAZINE 20MG/ML 1ML VIAL IV PRN (06:08)
[2023-06-06 06:35] VITALS: BP 155/73
[2023-06-06 07:30] VITALS: BP 144/65; TEMP 98.5; O2SAT 97
[2023-06-06] MEDS: PANTOPRAZOLE 40MG VIAL IV SCH (08:51)
[2023-06-06] MEDS: POTASSIUM CHLORIDE 10MEQ SR TABLET PO ONE (10:50)
[2023-06-06 11:59] VITALS: BP 147/74; TEMP 97.9; O2SAT 98
[2023-06-06] MEDS ORDERED: SUCR1TA PO (12:49)
[2023-06-06] MEDS ORDERED: ONDA-83 PO (12:52)
[2023-06-06] MEDS ORDERED: LOSA25TA13 PO (14:07)
[2023-06-06] MEDS: LOSARTAN 25 MG TAB PO SCH (14:12)
== END 2023-06-06 14:39 | disposition home or self-care (01) ==
LOC: M ED 12:01 → M ED INP 21:42 → M PCU 06-06 00:20
PROVIDERS: ADMIT Internal Medicine; ATTEND Internal Medicine
DX: R11.2 Nausea with vomiting, unspecified (principal); R42 Dizziness and giddiness; N17.9 Acute kidney failure, unspecified; Z96.611 Presence of right artificial shoulder joint; M19.011 Primary osteoarthritis, right shoulder; I12.9 Hypertensive chronic kidney disease with stage 1 through stage 4 chronic kidney disease, or unspecified chronic kidney disease; J44.9 Chronic obstructive pulmonary disease, unspecified; N18.9 Chronic kidney disease, unspecified; K74.60 Unspecified cirrhosis of liver; M25.511 Pain in right shoulder; M54.9 Dorsalgia, unspecified; G89.29 Other chronic pain; K29.70 Gastritis, unspecified, without bleeding; N32.89 Other specified disorders of bladder; N40.1 Benign prostatic hyperplasia with lower urinary tract symptoms; R26.81 Unsteadiness on feet; F11.11 Opioid abuse, in remission; N30.90 Cystitis, unspecified without hematuria; R00.1 Bradycardia, unspecified; Z86.19 Personal history of other infectious and parasitic diseases; Z79.899 Other long term (current) drug therapy; Z79.51 Long term (current) use of inhaled steroids
CPT/HCPCS: 36415; 70551; 71046; 74177; 80048; 80076; 81001; 82150; 82550; 82553; 83605; 83690; 83735; 84484; 85025; 85610; 85730; 86850; 86900; 86901; 87631; 93005; 93041; 96361; 96374; 96375; 96376; 97161; 99285; C9113; G0378; J0360; J2405; Q9967

== ENCOUNTER 2023-10-03 09:29 | Emergency (ER) | payer OTHER ==
[~2023-10-03] VITALS: Ht 172.7 cm; Wt 71.7 kg
[~2023-10-03 09:29] MED LIST changes: +LOSA25TA13 PO; +ONDA-83 PO; +POTA-150 PO; +RIFA300C62 PO; -RIFA300C8 PO; +SUCR1TA PO
[2023-10-03 11:50] VITALS: BP 190/89; TEMP 97.6; O2SAT 100
== END 2023-10-03 12:05 | disposition left against medical advice (07) ==
LOC: M ED 09:29
DX: Z53.21 Procedure and treatment not carried out due to patient leaving prior to being seen by health care provider (principal)

== ENCOUNTER 2024-01-06 08:28 | Emergency (ER) | payer OTHER ==
[~2024-01-06] VITALS: Ht 172.7 cm; Wt 68.0 kg
[2024-01-06 08:34] VITALS: BP 166/80; TEMP 98; O2SAT 96
[2024-01-06] MEDS: methocarbamoL 500 MG TAB PO ONE (09:58)
== END 2024-01-06 11:15 | disposition home or self-care (01) ==
LOC: M ED 08:28
DX: S19.9XXA Unspecified injury of neck, initial encounter (principal); Y92.410 Unspecified street and highway as the place of occurrence of the external cause; Y93.9 Activity, unspecified; Y99.9 Unspecified external cause status; V89.2XXA Person injured in unspecified motor-vehicle accident, traffic, initial encounter; I10 Essential (primary) hypertension; J44.9 Chronic obstructive pulmonary disease, unspecified; J45.909 Unspecified asthma, uncomplicated; N18.9 Chronic kidney disease, unspecified; Z87.891 Personal history of nicotine dependence; Z79.51 Long term (current) use of inhaled steroids; Z79.810 Long term (current) use of selective estrogen receptor modulators (SERMs); Z79.899 Other long term (current) drug therapy

== ENCOUNTER 2024-01-24 05:27 | Emergency (ER) | payer OTHER ==
[~2024-01-24] VITALS: Ht 170.2 cm; Wt 71.2 kg
[2024-01-24 05:30] VITALS: TEMP 98.8
[2024-01-24 06:31] VITALS: BP 178/97; O2SAT 99
== END 2024-01-24 06:41 | disposition home or self-care (01) ==
LOC: M ED 05:27
DX: G89.29 Other chronic pain (principal); I10 Essential (primary) hypertension; J45.909 Unspecified asthma, uncomplicated; J44.9 Chronic obstructive pulmonary disease, unspecified; Z86.19 Personal history of other infectious and parasitic diseases; K21.9 Gastro-esophageal reflux disease without esophagitis; K74.60 Unspecified cirrhosis of liver; Z79.899 Other long term (current) drug therapy

== ENCOUNTER → 2024-04-24 | Outpatient (REF) | payer OTHER ==
[2024-04-24 14:04] LABS: APPEARANCE, URINE CLEAR (CLEAR); BACTERIA, URINE AUTO NEGATIVE (NEGATIVE); BILIRUBIN, URINE AUTO NEGATIVE (NEGATIVE); BLOOD, URINE BLOOD NEGATIVE (NEGATIVE); COLOR, URINE YELLOW (YELLOW); GLUCOSE, URINE (UA) AUTO NEGATIVE (NEGATIVE); KETONE, URINE AUTO NEGATIVE (NEGATIVE); LEUKOCYTE ESTERASE, URINE AUTO TRACE (NEGATIVE); MUCUS, URINE SMALL (NEGATIVE); NITRITE, URINE AUTO NEGATIVE (NEGATIVE); PROTEIN, URINE AUTO NEGATIVE (NEGATIVE); RBC, URINE AUTO 0 /HPF (0-3); SPECIFIC GRAVITY URINE AUTO 1.014 (1.002-1.035); SQUAMOUS EPITHELIAL CELL UR AU 0 /HPF (0-6); WBC, URINE AUTO 6 /HPF (0-3)
== END ==
LOC: M SMT 12:43
PROVIDERS: ATTEND Urology
DX: N35.912 Unspecified bulbous urethral stricture, male (principal); Z79.899 Other long term (current) drug therapy

== ENCOUNTER → 2024-04-25 | Outpatient (CLI) | payer OTHER ==
[2024-04-25 07:28] LABS: HEMATOCRIT 41.6 % (42.0-52.0); HEMOGLOBIN 14.9 g/dl (13.5-17.5); MEAN CORPUSCULAR HEMOGLOBIN 31.3 pg (27.0-33.0); MEAN CORPUSCULAR HGB CONC 35.8 g/dl (32.0-36.5); MEAN CORPUSCULAR VOLUME 87.4 fl (80.0-96.0); PLATELET COUNT, AUTOMATED 279 10^3/uL (150-450); RED BLOOD COUNT 4.76 10^6/uL (4.30-6.10); WHITE BLOOD COUNT 10.1 10^3/uL (4.0-10.0)
[2024-04-25 09:23] LABS: PSA SCREENING 1.21 NG/ML (< 4.00)
[2024-04-25 09:36] LABS: ALBUMIN 3.8 G/DL (3.2-5.2); ALKALINE PHOSPHATASE 104 U/L (40-129); ALT/SGPT 11 U/L (7.0-40); AST/SGOT 9 U/L (<34); BILIRUBIN,TOTAL 0.5 MG/DL (0.3-1.2); BLOOD UREA NITROGEN 8 MG/DL (9-23); CALCIUM LEVEL 9.1 MG/DL (8.3-10.6); CARBON DIOXIDE LEVEL 27 MMOL/L (20-31); CHLORIDE LEVEL 103 MMOL/L (98-107); CREATININE FOR GFR 1.16 MG/DL (0.70-1.30); GLOMERULAR FILTRATION RATE > 60.0 (>49); GLUCOSE, FASTING 157 MG/DL (74-106); POTASSIUM SERUM 3.2 MMOL/L (3.5-5.1); SODIUM LEVEL 142 MMOL/L (136-145); TOTAL PROTEIN 7.2 G/DL (5.7-8.2)
== END ==
LOC: M LAB 06:53
PROVIDERS: ATTEND Urology
DX: N35.912 Unspecified bulbous urethral stricture, male (principal); Z12.5 Encounter for screening for malignant neoplasm of prostate; Z79.899 Other long term (current) drug therapy
CPT/HCPCS: 36415; 80053; 85027; G0103

== ENCOUNTER 2024-11-02 15:22 | Emergency (ER) | payer OTHER, MEDICARE, MEDICAID ==
[~2024-11-02] VITALS: Ht 170.2 cm; Wt 70.5 kg
[~2024-11-02 15:22] MED LIST changes: -FLOM0.4C39 PO; +PRED-1142 PO; -PRED1TABL PO; +TAMS-18 PO
[2024-11-02] MEDS: MORPHINE 4 MG/ML 1 ML VIAL IV ONE (17:10)
[2024-11-02 17:32] LABS: BASO # 0.1 10^3/uL (0.0-0.2); BASO % 1.1 % (0.0-1.0); EOS # 0.2 10^3/uL (0.0-0.5); EOS % 1.6 % (0.0-3.0); LYMPH # 1.6 10^3/uL (1.5-5.0); LYMPH % 17.3 % (24.0-44.0); MONO # 0.8 10^3/uL (0.0-0.8); MONO % 8.7 % (2.0-8.0); NEUTROPHILS # 6.5 10^3/uL (1.5-8.5); NEUTROPHILS % 71.0 % (36.0-66.0); PLATELET COUNT, AUTOMATED 221 10^3/uL (150-450)
[2024-11-02 17:45] LABS: ERYTHROCYTE SEDIMENTATION RATE 21 mm/hr (0-20)
[2024-11-02 17:48] LABS: C REACTIVE PROTEIN QUANTITATIV < 0.50 MG/DL (<1.0); CALCIUM LEVEL 8.4 MG/DL (8.3-10.6); CARBON DIOXIDE LEVEL 28 MMOL/L (20-31); CHLORIDE LEVEL 101 MMOL/L (98-107); CREATININE FOR GFR 1.16 MG/DL (0.70-1.30); GLOMERULAR FILTRATION RATE 68.2 (>49); POTASSIUM SERUM 3.5 MMOL/L (3.5-5.1); SODIUM LEVEL 140 MMOL/L (136-145)
[2024-11-02] MEDS ORDERED: OXYC-517 PO (19:05)
[2024-11-02 19:37] VITALS: BP 175/89; TEMP 98.2; O2SAT 100
== END 2024-11-02 19:45 | disposition home or self-care (01) ==
LOC: M ED 15:22
DX: M25.511 Pain in right shoulder (principal); I10 Essential (primary) hypertension; J44.9 Chronic obstructive pulmonary disease, unspecified; K21.9 Gastro-esophageal reflux disease without esophagitis; M54.50 Low back pain, unspecified; Z96.611 Presence of right artificial shoulder joint; Z79.899 Other long term (current) drug therapy

== ENCOUNTER 2024-12-28 19:01 | Emergency (ER) | payer MEDICARE, MEDICAID ==
[~2024-12-28] VITALS: Ht 170.2 cm; Wt 69.4 kg
[2024-12-28 19:02] VITALS: BP 141/99; TEMP 97.3; O2SAT 100
[2024-12-28] MEDS ORDERED: AMOX875T2 PO (19:38)
[2024-12-28] MEDS: AUGMENTIN 875 MG TAB PO ONE (19:47)
[2024-12-28] MEDS: TETANUS/DIPHTH/ACEL. PERTUSSIS 0.5 ML SYR IM.IMMUN ONE (19:47)
== END 2024-12-28 20:26 | disposition home or self-care (01) ==
LOC: M ED 19:01
DX: S80.211A Abrasion, right knee, initial encounter (principal); W54.0XXA Bitten by dog, initial encounter; Y92.009 Unspecified place in unspecified non-institutional (private) residence as the place of occurrence of the external cause; Y93.9 Activity, unspecified; Y99.9 Unspecified external cause status; I10 Essential (primary) hypertension; Z79.899 Other long term (current) drug therapy